=== PATIENT | female | born 1970 ===

== ENCOUNTER 2020-09-12 22:13 | Emergency (ER) | payer OTHER, SELFPAY ==
[2020-09-12 22:15] VITALS: BP 135/90; PULSE 65; RESP 18; TEMP 36.1; O2SAT 97; BMI 40.0
[2020-09-12 22:20] VITALS: BP 135/90; PULSE 69; RESP 18; TEMP 36.1; O2SAT 98
--- NOTE | 2020-09-12 22:41 | ED.GENADULT ---
HPI - General Adult General Chief complaint: General Medical Stated complaint: Multiple complaints Time Seen by Provider: 09/12/20 22:19 Source: patient Mode of arrival: ambulatory Limitations: no limitations History of Present Illness HPI narrative: 49-year-old female with a past medical history of diverticulitis here with left-sided abdominal pain for the last 3 days. No nausea, vomiting or diarrhea. She does have some dysuria. No fevers, chills. Onset (ago): day(s) Location: abdomen Radiation: non-radiation Severity: mild Quality: sharp Pain Consistency: constant Relieving factors: none Exacerbating factors: none Associated symptoms: denies other symptoms Treatments prior to arrival: none Related Data Previous Rx's Medication Instructions Recorded ibuprofen 600 mg PO Q8H PRN #20 tab 09/13/20 levofloxacin 750 mg PO DAILY 10 Days #10 tab 09/13/20 metronidazole [Flagyl] 500 mg PO TID 10 Days #30 tab 09/13/20 phenazopyridine [Pyridium] 200 mg PO TID PRN #10 tab 09/13/20 Allergies Allergy/AdvReac Type Severity Reaction Status Date / Time No Known Allergies Allergy Verified 09/09/20 07:13 Review of Systems Review of Systems: Yes all other systems are reviewed and are negative Constitutional: Constitutional: Reports no additional constitutional complaints, Denies body ache(s), Denies chills, Denies fever(s), Denies headache(s) and Denies weakness Eyes: Eyes: Reports no additional eye complaints and Denies change in vision ENT: Reports system reviewed and no additional complaints, except as documented, Denies dizziness, Denies headache(s), Denies nasal congestion, Denies nasal discharge and Denies neck pain Cardiovascular: Cardiovascular: Reports no additional cardiovascular complaints, Denies chest pain, Denies leg edema and Denies dyspnea Respiratory: Respiratory: Reports no additional respiratory complaints, Denies cough and Denies dyspnea Gastrointestinal: Gastrointestinal: Reports no additional gastrointestinal complaints, Reports abdominal pain, Denies diarrhea, Denies nausea and Denies vomiting Genitourinary: Genitourinary: Reports no additional female genitourinary complaints, Reports dysuria and Denies urinary incontinence Musculoskeletal: Musculoskeletal: Reports no additional musculoskeletal complaints, Denies back pain, Denies arthralgias, Denies joint swelling, Denies neck pain, Denies numbness and Denies tingling Integumentary/Breasts: Skin/Breast: Reports system reviewed and no additional complaints, except as docu and Denies rash Neurologic: Reports system reviewed and no additional complaints, except as documented, Denies Abnormal speech present, Denies dizziness, Denies headache(s), Denies numbness, Denies tingling and Denies weakness PMFSH Past Medical History Attestation statement: The following information was validated with the patient. Source: nursing notes reviewed Surgical History History of tubal ligation Family History Family History Father No problems noted. Mother No problems noted. Maternal Grandmother No problems noted. Maternal Grandfather No problems noted. Paternal Grandmother Diabetes Paternal Grandfather No problems noted. Social History Social History Alcohol intake: never Smoking Status: Never smoker Smoked in Last 30 Days: No Use of substances other than those prescribed or required for medical reasons: No Advance Directives: No Advance Directives Information Provided: Yes Physical Exam Vital Signs: Vital Signs: Last Vital Signs Temp 97 F 09/12/20 22:20 Pulse 56 09/12/20 23:38 Resp 16 09/12/20 23:38 BP 141/88 H 09/12/20 23:38 Pulse Ox 98 09/12/20 22:20 Body Mass Index 40.0 Const: General: cooperative, healthy appearing, comfortable and no acute distress Orientation/consciousness: patient oriented x3 Limitations: no limitations HENMT: Head: Yes normal to inspection Ears: hearing grossly normal bilaterally General nose exam: Normal external nose present Face and sinus: Yes normal facial exam Mouth: Normal oral and palatal mucosa present Throat: Yes posterior oropharynx normal Eyes: General: appearance normal, both eyes and all related structures Pupils: Equal, round and reactive pupils present Neck: Neck: Yes normal visual inspection Chest: Chest palpation & inspection: normal inspection of the chest Resp: Effort & Inspection: normal respiratory effort Auscultation: clear to auscultation bilaterally Cardio: Rate: regular rate Rhythm: regular rhythm Peripheral pulses: Peripheral pulses 2+ throughout GI: Inspection: Yes normal to inspection Palpation (GI): Soft to palpation, Tenderness to palpation present (GI) ( Left upper quadrant, left lower quadrant) and Guarding due to palpation present (GI) ( no rebound) Auscultation: normal bowel sounds Back/Spine/Pelvis: Thoracic/Lumbar Spine: thoracic and lumbar spine normal to inspection Skin: General skin exam: no rashes or lesions noted Neuro: General: patient oriented x3, no focal motor deficits and normal sensation to monofilament Cranial nerves: Yes Equal, round and reactive pupils present Cognition (Neuro): normal cognition Speech: No Abnormal speech present Gait exam (Neuro): Normal gait present Motor exam (neuro): 5/5 motor strength present throughout Extrem: General: Yes normal to inspection Course Course Course Narrative: 49-year-old female here with left-sided abdominal pain x3 days with some dysuria. Will need labs, UA, CT a/P. 0120- CT consistent with acute diverticulitis. Labs unremarkable. UA consistent with UTI. Patient tells me pain is improved. She is tolerating p.o.. Will discharge home with oral antibiotics. Reviewed worrisome signs and symptoms when to return to the emergency department. Comfortable discharge home. Medical Decision Making MDM Narrative Medical decision making narrative: diverticulitis, pancreatitis, renal colic, pyelonephritis, uti Medical Records Medical records reviewed: Yes I reviewed the patient's medical records. Lab Data Lab results reviewed: Yes I reviewed the patient's lab results. Result diagrams: 09/12/20 23:07 09/12/20 23:07 Labs: Lab Results 09/12/20 09/12/20 09/12/20 Range/Units 23:07 23:07 23:07 WBC 7.6 (4.8-10.8) X10*3/uL RBC 4.40 (4.20-5.50) X10*6/uL Hgb 12.7 (12.0-16.0) g/dl Hct 40.4 (37-47) % MCV 91.8 (80-98) fL MCH 28.9 (27.0-33.0) pg MCHC 31.4 (31.0-35.0) g/dl RDW 12.7 (11.0-16.0) % Plt Count 247 (160-400) X10*3/uL MPV 9.2 L (9.4-12.3) fL Immature Gran % (Auto) 0.1 (0.0-0.4) % Neut % (Auto) 54.6 (45-73) % Lymph % (Auto) 33.8 (20-40) % [place] % (Auto) 8.7 (2-11) % Eos % (Auto) 2.4 (0-4) % Baso % (Auto) 0.4 (0-2) % Lymph # (Auto) 2.6 (1.2-4.9) X10*3/uL [place] # (Auto) 0.7 (0.1-1.2) X10*3/uL Eos # (Auto) 0.2 (0.0-0.4) X10*3/uL Baso # (Auto) 0.0 (0.0-0.2) X10*3/uL Abs Immat Gran (auto) 0.01 (0.00-0.03) X10*3/uL Absolute Neuts (auto) 4.1 (2.0-8.3) X10*3/uL Absolute Nucleated RBC 0.000 (0.0-0.012) X10*3/uL Nucleated RBC % (auto) 0.0 (0.0-0.2) /100WBC Hold Blue Top Sodium 139 (135-145) mmol/L Potassium 3.9 (3.3-5.1) mmol/l Chloride 105 (96-108) mmol/L Carbon Dioxide 24 (22-29) mmol/L Anion Gap 14 (12-20) BUN 15 (9-16) mg/dL Creatinine 0.79 (0.5-1.4) mg/dL Estim Creat Clear Calc 111.9 Estimated GFR > 60 Random Glucose 98 (60-115) mg/dL Lactic Acid 0.6 (0.5-2.0) mmol/L Calcium 8.5 (8.4-10.2) mg/dL Magnesium 2.3 (1.6-2.6) mg/dL Total Bilirubin 0.5 (0.0-1.0) mg/dL Direct Bilirubin 0.2 (0.0-0.5) mg/dL AST 19 (5-31) U/L ALT 20 (0-31) U/L Alkaline Phosphatase 54 (39-117) U/L Total Protein 7.2 (6.5-8.0) g/dL Albumin 4.0 (3.5-5.0) g/dL Lipase (8-78) U/L Urine Color Urine Appearance Urine pH (5.0-8.0) Ur Specific [place] (1.005-1.025) Urine Protein (NEG-TRACE) MG/DL Urine Glucose (UA) (NEG) MG/DL Urine Ketones (NEG) MG/DL Urine Blood (NEG) Urine Nitrite (NEG) Ur Leukocyte Esterase (NEG) Urine RBC (0) /HPF Urine WBC (0-4) /HPF Ur Squamous Epith Cells /LPF Urine Bacteria /LPF Urine Mucus /LPF Urine Test (NEGATIVE) 09/12/20 09/12/20 09/12/20 Range/Units 23:07 23:07 23:36 WBC (4.8-10.8) X10*3/uL RBC (4.20-5.50) X10*6/uL Hgb (12.0-16.0) g/dl Hct (37-47) % MCV (80-98) fL MCH (27.0-33.0) pg MCHC (31.0-35.0) g/dl RDW (11.0-16.0) % Plt Count (160-400) X10*3/uL MPV (9.4-12.3) fL Immature Gran % (Auto) (0.0-0.4) % Neut % (Auto) (45-73) % Lymph % (Auto) (20-40) % [place] % (Auto) (2-11) % Eos % (Auto) (0-4) % Baso % (Auto) (0-2) % Lymph # (Auto) (1.2-4.9) X10*3/uL [place] # (Auto) (0.1-1.2) X10*3/uL Eos # (Auto) (0.0-0.4) X10*3/uL Baso # (Auto) (0.0-0.2) X10*3/uL Abs Immat Gran (auto) (0.00-0.03) X10*3/uL Absolute Neuts (auto) (2.0-8.3) X10*3/uL Absolute Nucleated RBC (0.0-0.012) X10*3/uL Nucleated RBC % (auto) (0.0-0.2) /100WBC Hold Blue Top SEE NOTE Sodium (135-145) mmol/L Potassium (3.3-5.1) mmol/l Chloride (96-108) mmol/L Carbon Dioxide (22-29) mmol/L Anion Gap (12-20) BUN (9-16) mg/dL Creatinine (0.5-1.4) mg/dL Estim Creat Clear Calc Estimated GFR Random Glucose (60-115) mg/dL Lactic Acid (0.5-2.0) mmol/L Calcium (8.4-10.2) mg/dL Magnesium (1.6-2.6) mg/dL Total Bilirubin (0.0-1.0) mg/dL Direct Bilirubin (0.0-0.5) mg/dL AST (5-31) U/L ALT (0-31) U/L Alkaline Phosphatase (39-117) U/L Total Protein (6.5-8.0) g/dL Albumin (3.5-5.0) g/dL Lipase 23 (8-78) U/L Urine Color YELLOW Urine Appearance HAZY Urine pH 6.0 (5.0-8.0) Ur Specific [place] >= 1.030 H (1.005-1.025) Urine Protein NEG (NEG-TRACE) MG/DL Urine Glucose (UA) NEG (NEG) MG/DL Urine Ketones NEG (NEG) MG/DL Urine Blood TRACE (NEG) Urine Nitrite POS H (NEG) Ur Leukocyte Esterase NEG (NEG) Urine RBC 0 (0) /HPF Urine WBC 15-29 H (0-4) /HPF Ur Squamous Epith Cells 3+ /LPF Urine Bacteria 2+ /LPF Urine Mucus 2+ /LPF Urine Test NEGATIVE (NEGATIVE) Imaging Data CT scan - abdomen: Attestation: I personally reviewed and interpreted this imaging study as follows: Radiologist's impression: CT ABDOMEN AND PELVIS WITH CONTRAST CLINICAL INFORMATION: Left lower quadrant abdominal pain. Rule out diverticulitis. COMPARISON: 01/10/2020 TECHNIQUE: Multidetector volumetric images were obtained from the superior aspect of the liver through the pubic symphysis following administration 85 mL of Omnipaque 350 intravenous contrast. Sagittal and coronal reformatted images were obtained on the technologist's workstation. Oral contrast: No This CT examination was performed using dose optimization techniques as appropriate, variously including the following: *Automated exposure control *Adjustment of mA and/or kV according to patient size (this includes techniques or standardized protocols for targeted exams where dose is matched to indication/reason for exam; i.e. extremities or head) *Use of iterative reconstruction technique DLP: 1009 mGy-cm FINDINGS: LUNG BASES: Minimal bibasilar atelectasis. The visualized cardiac structures are unremarkable. LIVER, GALLBLADDER, AND BILIARY TREE: The liver is normal in size, shape, and attenuation. No focal hepatic lesion or biliary ductal dilatation is present. The gallbladder is unremarkable with no evidence of radiopaque gallstones, gallbladder wall thickening, or obvious pericholecystic inflammatory changes. PANCREAS: Unremarkable. SPLEEN: Unremarkable. ADRENAL GLANDS: Unremarkable. KIDNEYS AND URETERS: The kidneys are normal in size, shape, and attenuation. No hydronephrosis, hydroureter, or calculi seen. No perinephric stranding. BLADDER: Unremarkable. GASTROINTESTINAL TRACT: The stomach is unremarkable. Normal caliber small bowel. No obstruction. There is colonic diverticulosis. Focal wall thickening and adjacent inflammation at the junction of the distal descending colon and proximal sigmoid colon. No free air. No fluid collection. ABDOMINAL WALL: No significant hernia is appreciated. LYMPH NODES: Normal. VASCULAR: Normal caliber aorta with mild atherosclerotic calcification. PELVIC VISCERA: Anteverted uterus. Dominant right ovarian follicle measuring 2.3 cm. OSSEOUS STRUCTURES: No acute or suspicious osseous abnormality. CT/CT abdomen pelvis w con IMPRESSION: Diverticulitis at the junction of the distal descending colon and proximal sigmoid colon. No free air or fluid collection. Discharge Plan Discharge Clinical Impression: Diverticulitis, UTI (urinary tract infection) Patient Disposition: Home, Self-Care Instructions: Diverticulitis (ED), Urinary Tract Infection in Women (ED) Additional Instructions: Start your antibiotics tomorrow morning Low residue diet drink plenty of fluids Prescriptions: New metronidazole [Flagyl] 500 mg tablet 500 mg PO TID 10 Days Qty: 30 RF: 0 levofloxacin 750 mg tablet 750 mg PO DAILY 10 Days Qty: 10 RF: 0 phenazopyridine [Pyridium] 200 mg tablet 200 mg PO TID PRN (Reason: pain) Qty: 10 RF: 0 ibuprofen 600 mg tablet 600 mg PO Q8H PRN (Reason: pain) Qty: 20 RF: 0 Referrals: Digna Tilley MD [Primary Care Provider] - 2 days Interventions: ED Discharge Assessment Last Done: 09/13/20 01:28 Discharge Date/Time: 09/13/20 01:28
[2020-09-12 23:15] LABS: Basophils Percent Auto 0.4 % (0-2); Eosinophils Absolute Auto 0.2 X10*3/uL (0.0-0.4); Eosinophils Percent Auto 2.4 % (0-4); Hematocrit 40.4 % (37-47); Hemoglobin 12.7 g/dl (12.0-16.0); Imm Gran Abs Auto 0.01 X10*3/uL (0.00-0.03); Imm Gran Pct Auto 0.1 % (0.0-0.4); Lymphocytes Absolute Auto 2.6 X10*3/uL (1.2-4.9); Lymphocytes Percent Auto 33.8 % (20-40); MANUAL DIFF FLAG NO; Mean Corpuscular HGB Conc 31.4 g/dl (31.0-35.0); Mean Corpuscular Hemoglobin 28.9 pg (27.0-33.0); Mean Corpuscular Volume 91.8 fL (80-98); Mean Platelet Volume 9.2 fL (9.4-12.3); Monocytes Absolute Auto 0.7 X10*3/uL (0.1-1.2); Monocytes Percent Auto 8.7 % (2-11); Neutrophils Absolute Auto 4.1 X10*3/uL (2.0-8.3); Neutrophils Percent Auto 54.6 % (45-73); Platelet Count 247 X10*3/uL (160-400); Red Cell Distribution Width 12.7 % (11.0-16.0); White Blood Count 7.6 X10*3/uL (4.8-10.8)
[2020-09-12] MEDS: Ketorolac Tromethamine 30 MG/ML VIAL IVPUSH (23:29)
[2020-09-12 23:38] VITALS: BP 141/88; PULSE 56; RESP 16
[2020-09-12 23:38] LABS: Lactic Acid 0.6 mmol/L (0.5-2.0)
[2020-09-12 23:42] LABS: Alanine Aminotransferase 20 U/L (0-31); Alkaline Phosphatase 54 U/L (39-117); Anion Gap 14 (12-20); Aspartate Amino Transferase 19 U/L (5-31); Bilirubin Direct 0.2 mg/dL (0.0-0.5); Bilirubin Total 0.5 mg/dL (0.0-1.0); Blood Urea Nitrogen 15 mg/dL (9-16); Calcium 8.5 mg/dL (8.4-10.2); Carbon Dioxide 24 mmol/L (22-29); Chloride 105 mmol/L (96-108); Creatinine Clr Calc Pharmacy 111.9; Estimated Glomerular Filt Rate > 60; Glucose Random 98 mg/dL (60-115); Lipase 23 U/L (8-78); Magnesium 2.3 mg/dL (1.6-2.6); Potassium 3.9 mmol/l (3.3-5.1); Sodium 139 mmol/L (135-145); Total Protein 7.2 g/dL (6.5-8.0)
[2020-09-12 23:44] LABS: Appearance Urine HAZY; Color Urine YELLOW; Glucose Urine UA NEG (NEG); Leukocyte Esterase Urine NEG (NEG); Nitrite Urine POS (NEG); Specific Gravity - Urine >= 1.030 (1.005-1.025); Urine Blood TRACE (NEG); Urine Ketones NEG (NEG); Urine Protein NEG (NEG-TRACE)
[2020-09-12 23:45] LABS: UPreg QC Valid YES; Urine Pregnancy NEGATIVE (NEGATIVE)
[2020-09-12 23:52] LABS: Bacteria Urine 2+ /LPF; Mucus Urine 2+ /LPF; RBC Urine 0 /HPF (0); Squamous Epithelial Cell Urine 3+ /LPF
--- NOTE | 2020-09-13 | CT_ITS ---
EXAMINATION: CT ABDOMEN AND PELVIS WITH CONTRAST CLINICAL INFORMATION: Left lower quadrant abdominal pain. Rule out diverticulitis. COMPARISON: 01/10/2020 TECHNIQUE: Multidetector volumetric images were obtained from the superior aspect of the liver through the pubic symphysis following administration 85 mL of Omnipaque 350 intravenous contrast. Sagittal and coronal reformatted images were obtained on the technologist's workstation. Oral contrast: No This CT examination was performed using dose optimization techniques as appropriate, variously including the following: *Automated exposure control *Adjustment of mA and/or kV according to patient size (this includes techniques or standardized protocols for targeted exams where dose is matched to indication/reason for exam; i.e. extremities or head) *Use of iterative reconstruction technique DLP: 1009 mGy-cm FINDINGS: LUNG BASES: Minimal bibasilar atelectasis. The visualized cardiac structures are unremarkable. LIVER, GALLBLADDER, AND BILIARY TREE: The liver is normal in size, shape, and attenuation. No focal hepatic lesion or biliary ductal dilatation is present. The gallbladder is unremarkable with no evidence of radiopaque gallstones, gallbladder wall thickening, or obvious pericholecystic inflammatory changes. PANCREAS: Unremarkable. SPLEEN: Unremarkable. ADRENAL GLANDS: Unremarkable. KIDNEYS AND URETERS: The kidneys are normal in size, shape, and attenuation. No hydronephrosis, hydroureter, or calculi seen. No perinephric stranding. BLADDER: Unremarkable. GASTROINTESTINAL TRACT: The stomach is unremarkable. Normal caliber small bowel. No obstruction. There is colonic diverticulosis. Focal wall thickening and adjacent inflammation at the junction of the distal descending colon and proximal sigmoid colon. No free air. No fluid collection. ABDOMINAL WALL: No significant hernia is appreciated. LYMPH NODES: Normal. VASCULAR: Normal caliber aorta with mild atherosclerotic calcification. PELVIC VISCERA: Anteverted uterus. Dominant right ovarian follicle measuring 2.3 cm. OSSEOUS STRUCTURES: No acute or suspicious osseous abnormality. CT/CT abdomen pelvis w con IMPRESSION: Diverticulitis at the junction of the distal descending colon and proximal sigmoid colon. No free air or fluid collection.
[2020-09-13] MEDS: iohexoL 350 MG/ML 100 ML INFUS..BTL 85 ML IV (00:25)
--- NOTE | 2020-09-13 00:28 | PC.NURSE ---
PT A&O, DENIES ANY N/V. NO CHEST PAIN. REPORTS LLQ PAIN STARTING 3 DAYS AGO. PT HAD BOWEL MOVEMENT TODAY AND STATE SHE WAS CONSTIPATED. MEDICATED PER DEC. LABS AND UA COLLECTED AND SENT. PT TAKEN TO CT-SCAN.
[2020-09-13] MEDS: levoFLOXacin 750 MG TABLET PO (01:23)
[2020-09-13] MEDS: metroNIDAZOLE 500 MG TABLET PO (01:23)
== END 2020-09-13 01:28 | disposition home or self-care (01) ==
PROVIDERS: Nurse Practitioner Family; Emergency Provider Emergency Medicine; PCP Internal Medicine
DX: K57.32 Diverticulitis of large intestine without perforation or abscess without bleeding (principal); N39.0 Urinary tract infection, site not specified; R10.32 Left lower quadrant pain; Z79.899 Other long term (current) drug therapy
CPT/HCPCS: 36415; 74177; 80048; 80076; 81001; 81025; 83605; 83690; 83735; 85025; 87040; 87086; 87088; 87186; 96374; 99284; J1885; Q9967

== ENCOUNTER 2020-12-08 20:28 | Emergency (ER) | payer OTHER, SELFPAY ==
--- NOTE | ~2020-12-08 | CT_ITS ---
EXAMINATION: CT ABDOMEN AND PELVIS WITH CONTRAST CLINICAL INFORMATION: Left lower quadrant pain. History of diverticulitis. COMPARISON: 09/13/2020 TECHNIQUE: Multidetector volumetric images were obtained from the superior aspect of the liver through the pubic symphysis following administration 85 mL of Omnipaque 350 intravenous contrast. Sagittal and coronal reformatted images were obtained on the technologist's workstation. Oral contrast: No This CT examination was performed using dose optimization techniques as appropriate, variously including the following: *Automated exposure control *Adjustment of mA and/or kV according to patient size (this includes techniques or standardized protocols for targeted exams where dose is matched to indication/reason for exam; i.e. extremities or head) *Use of iterative reconstruction technique DLP: 961 mGy-cm FINDINGS: LUNG BASES: The visualized lung bases are unremarkable. LIVER, GALLBLADDER, AND BILIARY TREE: The liver is normal in size, shape, and attenuation. No focal hepatic lesion or biliary ductal dilatation is present. The gallbladder is contracted with no evidence of radiopaque gallstones, gallbladder wall thickening, or obvious pericholecystic inflammatory changes. PANCREAS: Unremarkable. SPLEEN: Unremarkable. ADRENAL GLANDS: Unremarkable. KIDNEYS AND URETERS: The kidneys are normal in size, shape, and attenuation. No hydronephrosis, hydroureter, or calculi seen. No perinephric stranding. BLADDER: Unremarkable. GASTROINTESTINAL TRACT: The stomach is unremarkable. Normal caliber small bowel. No obstruction. Normal appendix. There is colonic diverticulosis present. Wall thickening of the distal descending colon with adjacent inflammation. No free air. No fluid collection. ABDOMINAL WALL: No significant hernia is appreciated. LYMPH NODES: Normal. VASCULAR: Unremarkable. PELVIC VISCERA: Anteverted uterus. Nabothian cysts noted at the cervix. Prominent follicles are seen at both ovaries. Particularly prominent at the left ovary is a 3.1 cm follicle. OSSEOUS STRUCTURES: No acute or suspicious osseous abnormality. Mild degenerative changes of the hips. CT/CT abdomen pelvis w con IMPRESSION: Diverticulitis of the distal descending colon.
[2020-12-08 21:40] VITALS: BP 134/80; PULSE 60; RESP 18; TEMP 37.1; O2SAT 96; BMI 39.0
[2020-12-08 22:03] VITALS: BP 145/92; PULSE 84; RESP 16; TEMP 37.4; O2SAT 99
[2020-12-08 22:09] LABS: Basophils Percent Auto 0.5 % (0-2); Eosinophils Absolute Auto 0.1 X10*3/uL (0.0-0.4); Eosinophils Percent Auto 1.4 % (0-4); Hematocrit 39.7 % (37-47); Hemoglobin 12.9 g/dl (12.0-16.0); Imm Gran Abs Auto 0.03 X10*3/uL (0.00-0.03); Imm Gran Pct Auto 0.3 % (0.0-0.4); Lymphocytes Percent Auto 23.8 % (20-40); MANUAL DIFF FLAG NO; Mean Corpuscular HGB Conc 32.5 g/dl (31.0-35.0); Mean Corpuscular Hemoglobin 29.9 pg (27.0-33.0); Mean Corpuscular Volume 92.1 fL (80-98); Monocytes Absolute Auto 0.8 X10*3/uL (0.1-1.2); Monocytes Percent Auto 9.7 % (2-11); Neutrophils Absolute Auto 5.5 X10*3/uL (2.0-8.3); Neutrophils Percent Auto 64.3 % (45-73); Platelet Count 282 X10*3/uL (160-400); Red Blood Count 4.31 X10*6/uL (4.20-5.50); Red Cell Distribution Width 12.8 % (11.0-16.0); White Blood Count 8.6 X10*3/uL (4.8-10.8)
[2020-12-08 22:14] LABS: Glucose Urine UA NEG (NEG); Leukocyte Esterase Urine NEG (NEG); Nitrite Urine NEG (NEG); Specific Gravity - Urine 1.025 (1.005-1.025); Urine Blood NEG (NEG); Urine Ketones NEG (NEG); Urine Protein NEG (NEG-TRACE)
[2020-12-08 22:15] LABS: Appearance Urine CLEAR; Color Urine DARK YELLOW
[2020-12-08 22:40] LABS: Alanine Aminotransferase 14 U/L (0-31); Alkaline Phosphatase 55 U/L (39-117); Anion Gap 13 (12-20); Aspartate Amino Transferase 15 U/L (5-31); Bilirubin Total 0.4 mg/dL (0.0-1.0); Blood Urea Nitrogen 15 mg/dL (9-16); Carbon Dioxide 27 mmol/L (22-29); Chloride 106 mmol/L (96-108); Creatinine Clr Calc Pharmacy 101.5; Estimated Glomerular Filt Rate > 60; Glucose Random 77 mg/dL (60-115); Potassium 4.8 mmol/L (3.3-5.1); Sodium 141 mmol/L (135-145); Total Protein 7.2 g/dL (6.5-8.0)
--- NOTE | 2020-12-09 00:10 | ED.ABDPAIN ---
HPI - Abdominal Pain General Chief Complaint: Abdominal Pain Stated Complaint: pelvic abdominal pain Time Seen by Provider: 12/09/20 00:00 Source: patient Mode of arrival: ambulatory Limitations: no limitations History of Present Illness HPI narrative: Patient comes emergency room complaining of suprapubic and left lower quadrant pain. Started today around 19:30. Has been constant, deep pressure sensation, nonradiating. Patient denies vomiting or diarrhea, no fever. Patient has history of diverticulitis and kidney stones. MD elicited complaint: abdominal pain Related Data Previous Rx's Medication Instructions Recorded ibuprofen 600 mg PO Q8H PRN #20 tab 09/13/20 levofloxacin 750 mg PO DAILY 10 Days #10 tab 09/13/20 metronidazole [Flagyl] 500 mg PO TID 10 Days #30 tab 09/13/20 phenazopyridine [Pyridium] 200 mg PO TID PRN #10 tab 09/13/20 Allergies Allergy/AdvReac Type Severity Reaction Status Date / Time No Known Allergies Allergy Verified 12/08/20 21:40 Review of Systems Review of Systems Constitutional : No Weight loss, No Fever, No Chills, No Night Sweats, No Fatigue, No Malaise ENT/Mouth : No Hearing loss, No Ear Pain, No Nasal Congestion, No Sinus Pain, No Hoarseness, No sore throat, No Rhinorrhea, No Swallowing Difficulty Eyes: No Eye Pain, No Swelling, No Redness, No Foreign Body, No Discharge, No Vision Changes Cardiovascular : No Chest Pain, No SOB, No Dyspnea on Exertion, No Orthopnea, No Edema, No Palpitations Respiratory : No Cough, No Sputum, No Wheezing, No Smoke Exposure, No Dyspnea Gastrointestinal : No Nausea, No Vomiting, No Diarrhea, No Constipation, complaining of suprapubic and left lower quadrant pain, No Hematochezia, No Melena Genitourinary : no irregular bleeding, No Dysuria, No Urinary Frequency, No Hematuria, No Urinary Incontinence, No Urgency, No Flank Pain, No Urinary Flow Changes, No Hesitancy Musculoskeletal : No joint pain, No Myalgias, No Joint Swelling Skin : No Skin Lesions, No rash Neuro : No Weakness, No Numbness, No Paresthesias, No Loss of Consciousness, No Dizziness, No Headache Psych : No Anxiety/Panic, No Depression, No SI/HI/AH/VH, No Social Issues, Heme/Lymph: No Bruising, No Bleeding,No Lymphadenopathy Endocrine : No Polyuria, No Polydipsia, No Temperature Intolerance Physical Exam Vital Signs: Vital Signs: Last Vital Signs Temp 99.3 F 12/08/20 22:03 Pulse 84 12/08/20 22:03 Resp 16 12/08/20 22:03 BP 145/92 H 12/08/20 22:03 Pulse Ox 99 12/08/20 22:03 Body Mass Index 39.0 Appearance: Alert. Oriented X3. No acute distress. Eyes: Pupils equal, round and reactive to light. ENT: Pharynx normal. Neck: Normal inspection. Neck supple. No lymph nodes noted. No crepitus CVS: Normal heart rate and rhythm. Pulses normal. Normal S1 and S2 Respiratory: No respiratory distress. Breath sounds normal. No Wheezing. No rales Abdomen: Soft, tenderness to palpation over the left lower quadrant, No rigidity. No distention. good BS x4 Skin: Skin warm and dry. Normal skin color. Normal skin turgor. Extremities: No lower extremity edema. No lower extremity edema. No Lacerations. No Rash Neuro: Oriented X 3. No motor deficit. No sensory deficit. Moving all extermities. No slurred speech. Course Course Course Narrative: I discussed the labs and imaging with the patient, patient has diverticulitis. Patient states the pain is very minimal. Patient will be taking p.o. antibiotics and then will be discharged home. Discussed with the patient that if the pain increases, any new symptoms she needs to return to the emergency room MDM - Abdominal Pain Lab Data Result diagrams: 12/08/20 22:02 12/08/20 22:02 Labs: Lab Results 12/08/20 12/08/20 12/08/20 Range/Units 21:57 21:57 22:02 WBC 8.6 (4.8-10.8) X10*3/uL RBC 4.31 (4.20-5.50) X10*6/uL Hgb 12.9 (12.0-16.0) g/dl Hct 39.7 (37-47) % MCV 92.1 (80-98) fL MCH 29.9 (27.0-33.0) pg MCHC 32.5 (31.0-35.0) g/dl RDW 12.8 (11.0-16.0) % Plt Count 282 (160-400) X10*3/uL MPV 9.0 L (9.4-12.3) fL Immature Gran % (Auto) 0.3 (0.0-0.4) % Neut % (Auto) 64.3 (45-73) % Lymph % (Auto) 23.8 (20-40) % [place] % (Auto) 9.7 (2-11) % Eos % (Auto) 1.4 (0-4) % Baso % (Auto) 0.5 (0-2) % Lymph # (Auto) 2.0 (1.2-4.9) X10*3/uL [place] # (Auto) 0.8 (0.1-1.2) X10*3/uL Eos # (Auto) 0.1 (0.0-0.4) X10*3/uL Baso # (Auto) 0.0 (0.0-0.2) X10*3/uL Abs Immat Gran (auto) 0.03 (0.00-0.03) X10*3/uL Absolute Neuts (auto) 5.5 (2.0-8.3) X10*3/uL Absolute Nucleated RBC 0.000 (0.0-0.012) X10*3/uL Nucleated RBC % (auto) 0.0 (0.0-0.2) /100WBC Hold Blue Top Sodium (135-145) mmol/L Potassium (3.3-5.1) mmol/L Chloride (96-108) mmol/L Carbon Dioxide (22-29) mmol/L Anion Gap (12-20) BUN (9-16) mg/dL Creatinine (0.5-1.4) mg/dL Estim Creat Clear Calc Estimated GFR Random Glucose (60-115) mg/dL Calcium (8.4-10.2) mg/dL Total Bilirubin (0.0-1.0) mg/dL AST (5-31) U/L ALT (0-31) U/L Alkaline Phosphatase (39-117) U/L Total Protein (6.5-8.0) g/dL Albumin (3.5-5.0) g/dL Urine Color DARK YELLOW Urine Appearance CLEAR Urine pH 6.0 (5.0-8.0) Ur Specific [place] 1.025 (1.005-1.025) Urine Protein NEG (NEG-TRACE) MG/DL Urine Glucose (UA) NEG (NEG) MG/DL Urine Ketones NEG (NEG) MG/DL Urine Blood NEG (NEG) Urine Nitrite NEG (NEG) Ur Leukocyte Esterase NEG (NEG) Urine Test NEGATIVE (NEGATIVE) 12/08/20 12/08/20 Range/Units 22:02 22:02 WBC (4.8-10.8) X10*3/uL RBC (4.20-5.50) X10*6/uL Hgb (12.0-16.0) g/dl Hct (37-47) % MCV (80-98) fL MCH (27.0-33.0) pg MCHC (31.0-35.0) g/dl RDW (11.0-16.0) % Plt Count (160-400) X10*3/uL MPV (9.4-12.3) fL Immature Gran % (Auto) (0.0-0.4) % Neut % (Auto) (45-73) % Lymph % (Auto) (20-40) % [place] % (Auto) (2-11) % Eos % (Auto) (0-4) % Baso % (Auto) (0-2) % Lymph # (Auto) (1.2-4.9) X10*3/uL [place] # (Auto) (0.1-1.2) X10*3/uL Eos # (Auto) (0.0-0.4) X10*3/uL Baso # (Auto) (0.0-0.2) X10*3/uL Abs Immat Gran (auto) (0.00-0.03) X10*3/uL Absolute Neuts (auto) (2.0-8.3) X10*3/uL Absolute Nucleated RBC (0.0-0.012) X10*3/uL Nucleated RBC % (auto) (0.0-0.2) /100WBC Hold Blue Top SEE NOTE Sodium 141 (135-145) mmol/L Potassium 4.8 (3.3-5.1) mmol/L Chloride 106 (96-108) mmol/L Carbon Dioxide 27 (22-29) mmol/L Anion Gap 13 (12-20) BUN 15 (9-16) mg/dL Creatinine 0.85 (0.5-1.4) mg/dL Estim Creat Clear Calc 101.5 Estimated GFR > 60 Random Glucose 77 (60-115) mg/dL Calcium 9.0 (8.4-10.2) mg/dL Total Bilirubin 0.4 (0.0-1.0) mg/dL AST 15 (5-31) U/L ALT 14 (0-31) U/L Alkaline Phosphatase 55 (39-117) U/L Total Protein 7.2 (6.5-8.0) g/dL Albumin 4.0 (3.5-5.0) g/dL Urine Color Urine Appearance Urine pH (5.0-8.0) Ur Specific [place] (1.005-1.025) Urine Protein (NEG-TRACE) MG/DL Urine Glucose (UA) (NEG) MG/DL Urine Ketones (NEG) MG/DL Urine Blood (NEG) Urine Nitrite (NEG) Ur Leukocyte Esterase (NEG) Urine Test (NEGATIVE) Imaging Data CT scan - abdomen: Radiologist's impression: FINDINGS: LUNG BASES: The visualized lung bases are unremarkable. LIVER, GALLBLADDER, AND BILIARY TREE: The liver is normal in size, shape, and attenuation. No focal hepatic lesion or biliary ductal dilatation is present. The gallbladder is contracted with no evidence of radiopaque gallstones, gallbladder wall thickening, or obvious pericholecystic inflammatory changes. PANCREAS: Unremarkable. SPLEEN: Unremarkable. ADRENAL GLANDS: Unremarkable. KIDNEYS AND URETERS: The kidneys are normal in size, shape, and attenuation. No hydronephrosis, hydroureter, or calculi seen. No perinephric stranding. BLADDER: Unremarkable. GASTROINTESTINAL TRACT: The stomach is unremarkable. Normal caliber small bowel. No obstruction. Normal appendix. There is colonic diverticulosis present. Wall thickening of the distal descending colon with adjacent inflammation. No free air. No fluid collection. ABDOMINAL WALL: No significant hernia is appreciated. LYMPH NODES: Normal. VASCULAR: Unremarkable. PELVIC VISCERA: Anteverted uterus. Nabothian cysts noted at the cervix. Prominent follicles are seen at both ovaries. Particularly prominent at the left ovary is a 3.1 cm follicle. OSSEOUS STRUCTURES: No acute or suspicious osseous abnormality. Mild degenerative changes of the hips. CT/CT abdomen pelvis w con IMPRESSION: Diverticulitis of the distal descending colon. Discharge Plan Discharge Clinical Impression: Diverticulitis Patient Disposition: Home, Self-Care Instructions: Diverticulitis Diet (ED), Diverticulitis (ED) Additional Instructions: If you have worsening abdominal pain, any new symptoms, please return to the emergency room. Please follow-up with your primary care physician tomorrow. If you have any worsening or new symptoms, please return to the emergency room or call 911 Prescriptions: No Action metronidazole [Flagyl] 500 mg tablet 500 mg PO TID 10 Days Qty: 30 RF: 0 levofloxacin 750 mg tablet 750 mg PO DAILY 10 Days Qty: 10 RF: 0 phenazopyridine [Pyridium] 200 mg tablet 200 mg PO TID PRN (Reason: pain) Qty: 10 RF: 0 ibuprofen 600 mg tablet 600 mg PO Q8H PRN (Reason: pain) Qty: 20 RF: 0 PMFSH Past Medical History Medical History (Updated 12/09/20 @ 01:26 by Abeba Caal MD) Diverticula, colon Diverticulitis Surgical History History of tubal ligation Family History Family History Father No problems noted. Mother No problems noted. Maternal Grandmother No problems noted. Maternal Grandfather No problems noted. Paternal Grandmother Diabetes Paternal Grandfather No problems noted. Social History Social History Alcohol intake: never Smoking Status: Never smoker Advance Directives: No
[2020-12-09 00:25] LABS: UPreg QC Valid YES; Urine Pregnancy NEGATIVE (NEGATIVE)
[2020-12-09] MEDS: iohexoL 350 MG/ML 100 ML INFUS..BTL 85 ML IV (00:39)
[2020-12-09] MEDS: metroNIDAZOLE 500 MG TABLET PO (01:33)
[2020-12-09] MEDS: levoFLOXacin 500 MG TABLET PO (01:33)
== END 2020-12-09 02:18 | disposition home or self-care (01) ==
PROVIDERS: Emergency Provider Emergency Medicine; PCP Internal Medicine
DX: K57.32 Diverticulitis of large intestine without perforation or abscess without bleeding (principal); Z87.442 Personal history of urinary calculi; Z79.899 Other long term (current) drug therapy
CPT/HCPCS: 36415; 74177; 80053; 81003; 81025; 85025; 99283; 99284; Q9967

== ENCOUNTER → 2021-01-16 10:38 | Outpatient (BNVA) | payer OTHER, SELFPAY | PROVIDERS: PCP Internal Medicine; Visit Provider Surgery ==

== ENCOUNTER 2021-10-19 09:35 | Emergency (ER) | payer OTHER, SELFPAY ==
--- NOTE | ~2021-10-19 | XR_ITS ---
EXAMINATION: XR HIP, LEFT CLINICAL INFORMATION: Left hip pain COMPARISON: None TECHNIQUE: Two views of the left hip. AP pelvis one view FINDINGS: Bones and soft tissues are normal. No fracture. Alignment is anatomic. Hip joint space is maintained. There are phleboliths seen throughout the pelvis. 2 views of the left hip reveal no fracture or dislocation. XR/XR hip LT w PEL1V IMPRESSION: Normal left hip. Normal AP pelvis
--- NOTE | ~2021-10-19 | US_ITS ---
EXAMINATION: US VENOUS ULTRASOUND WITH DOPPLER LOWER EXTREMITY, LEFT CLINICAL INFORMATION: Thigh pain. COMPARISON: None TECHNIQUE: Ultrasound of the deep veins is performed from the hip to the calf with compression sonography and color and pulse Doppler assessment. Spectral analysis with color-flow imaging is performed. FINDINGS: There is normal venous compression and respiratory variation and augmented flow. The visualized common femoral vein, superficial femoral vein, profunda femoral vein, popliteal vein, and the trifurcation region shows no evidence of deep venous thrombosis. There is no significant popliteal fossa cyst. If the patient's symptoms persist, followup ultrasound in 5 days 7 days might be of value to exclude proximal propagation from a non-visualized calf vein. US/US venous duplex LE LT IMPRESSION: No DVT demonstrated in the left lower extremity.
[2021-10-19 10:01] VITALS: BP 148/91; PULSE 74; RESP 16; TEMP 36.9; O2SAT 99; BMI 38.7
--- NOTE | 2021-10-19 10:42 | ED_ITS ---
HPI - Extremity Injury (Lower) General Chief Complaint: Extremity Injury, Lower Stated Complaint: left leg pain Time Seen by Provider: 10/19/21 10:42 Source: patient Mode of arrival: ambulatory Limitations: no limitations History of Present Illness HPI Narrative: This is a 51-year-old female no known medical history presenting to the emergency department with atraumatic left thigh pain set at time radiates to the knee. Patient tells me that this has been going on for 2 days progressively worsening. She tells me that the pain is deep, into her thigh. Worse with palpation, better at rest. She tells me she notes slight swelling to the left thigh. This has never happened to her before. She has no history of DVTs. She denies shortness of breath and chest pain. Patient has been taking Motrin for pain with no relief. MD complaint: thigh injury (atraumatic left thigh pain ) Onset (ago): day(s) (2) Type of Injury: other (none) Severity: severe Severity scale (1-10): 10 Relieving factors: nothing Exacerbating factors: nothing Associated symptoms: other (pain ) Other symptoms: none Related Data Previous Rx's Medication Instructions Recorded ibuprofen 600 mg tablet 600 mg PO Q8H PRN #20 tab 09/13/20 cyclobenzaprine 10 mg tablet 10 mg PO BEDTIME PRN #7 tab 10/19/21 oxycodone 5 mg tablet 5 mg PO Q8H PRN #8 tab 10/19/21 Allergies Allergy/AdvReac Type Severity Reaction Status Date / Time No Known Allergies Allergy Verified 01/01/21 14:26 Review of Systems Review of Systems: Constitutional : No Weight loss, No Fever, No Chills, No Fatigue, No Malaise ENT/Mouth : No sore throat, No Rhinorrhea Eyes: No Eye Pain, No Swelling, No Redness Cardiovascular : No Chest Pain, No SOB, No Dyspnea on Exertion, No Orthopnea, No Edema, No Palpitations Respiratory : No Cough, No Sputum, No Wheezing Gastrointestinal : No Nausea, No Vomiting, No Diarrhea, No Constipation, No abdominal Pain, No Hematochezia, No Melena Genitourinary : No Dysuria, No Urinary Frequency, No Hematuria, Musculoskeletal : + joint pain, No Myalgias, + Joint Swelling Skin : No Skin Lesions, No rash Neuro : No Weakness, No Numbness, No Dizziness, No Headache All other systems reviewed and are negative Yes all other systems are reviewed and are negative [facility] Past Medical History Attestation statement: The following information was validated with the patient. Source: old records reviewed and nursing notes reviewed Medical History Diverticula, colon Diverticulitis Surgical History History of tubal ligation Family History Family History Father No problems noted. Mother No problems noted. Maternal Grandmother No problems noted. Maternal Grandfather No problems noted. Paternal Grandmother Diabetes Paternal Grandfather No problems noted. Social History Social History Alcohol intake: never Advance Directives: No Advance Directives Information Provided: No Patient : No Physical Exam Vital Signs: Vital Signs: Last Vital Signs Temp 98.3 F 10/19/21 12:56 Pulse 77 10/19/21 12:56 Resp 17 10/19/21 12:56 BP 155/91 H 10/19/21 12:56 Pulse Ox 97 10/19/21 12:56 BMI result Body Mass Index 38.7 Patient's vital signs are stable, she is noted to be slightly hypertensive. Appearance: Alert.? Oriented X3.? No acute distress.? Head: Normocephalic, atraumatic, no step-offs or deformities Eyes: Pupils equal, round and reactive to light.? ENT: Pharynx normal.? Neck: Normal inspection.? Neck supple.? CVS: Normal heart rate and rhythm.? Pulses normal.? Respiratory: No respiratory distress.? Breath sounds normal.? Abdomen: Soft and nontender.? Skin: Skin warm and dry.? Normal skin color.? Normal skin turgor.? Extremities: No lower extremity edema.? No calf ttp. 5/5 strength to bilateral upper and lower extremities + pain with palpation over left femoral head area. Normal on right. No overlying skin changes. Sensation and morot intact to b/l upper and lower extremities. No foot drop. Back: No midline tenderness, no C-spine tenderness, full range of motion, no CVA tenderness bilaterally Neuro: Oriented X 3.? No motor deficit.? No sensory deficit. Course Reevaluation(s) Reevaluation #1: Patient reports that her 's COVID positive, COVID test has been ordered at this time. X-ray negative. COVID negative. At this time I suspect this is a hip strain. I will send her home with naproxen and cyclobenzaprine. Will also give oxycodone for severe pain Time: 12:58 [facility] - Extremity Injury (Lower) [facility] Narrative Medical decision making narrative: 1122 51 yo f no pmhx presents with atraumatic left hip pain X2 days worsening Upon exam no lower extremity edema.? No calf ttp. 5/5 strength to bilateral upper and lower extremities + pain with palpation over left femoral head area. Normal on right. No overlying skin changes. Sensation and morot intact to b/l upper and lower extremities. Lungs clear. RRR. Abdomen soft non tender no distended. Plan US of LLE r/o DVT, although low suspicion. Will rule out fx and dislocation w/ xray. Likely arthritis Medical Records Attestation: I reviewed the patient's medical records. Lab Data Attestation: I reviewed the patient's lab results. Labs: Lab Results 10/19/21 Range/Units 12:32 COVID-19 ([facility]) Negative (Negative) COVID-19 Clin Com See Note Imaging Data Pelvis Xray : Attestation: I personally reviewed and interpreted this imaging study as follows: Radiologist's impression: FINDINGS: Bones and soft tissues are normal. No fracture. Alignment is anatomic. Hip joint space is maintained. There are phleboliths seen throughout the pelvis. 2 views of the left hip reveal no fracture or dislocation. XR/XR hip LT w PEL1V IMPRESSION: Normal left hip. ? Normal AP pelvis Venous US: Attestation: I personally reviewed and interpreted this imaging study as follows: Radiologist's impression: US/US venous duplex LE LT IMPRESSION: No DVT demonstrated in the left lower extremity. Critical Care Time Critical Care Time Critical Care Time: No Discharge Plan Discharge Clinical Impression: Hip strain Patient Disposition: Home, Self-Care Instructions: Swollen Hip Joint (ED) Additional Instructions: Take your medications as prescribed. If you were prescribed antibiotics today, it is important that you take your medication to their entirety, do not skip any doses, do not finish them early. Follow-up with your primary care provider this week. Take ibuprofen every 6 hours, Tylenol every 4 as needed for pain. Only take oxycodone for severe pain, do not take this with ibuprofen or Tylenol. Return to the emergency department with new or worsening symptoms. In case of emergency call 911 Prescriptions: New cyclobenzaprine 10 mg tablet 10 mg PO BEDTIME PRN (Reason: muscle spasm) Qty: 7 RF: 0 oxycodone 5 mg tablet 5 mg PO Q8H PRN (Reason: pain) Qty: 8 RF: 0 No Action ibuprofen 600 mg tablet 600 mg PO Q8H PRN (Reason: pain) Qty: 20 RF: 0 Referrals: Digna Tilley MD [Primary Care Provider] - 2 days
[2021-10-19 12:52] LABS: COVID-19 Test Negative (Negative)
[2021-10-19 12:56] VITALS: BP 155/91; PULSE 77; RESP 17; TEMP 36.8; O2SAT 97
[2021-10-19] MEDS: oxyCODONE HCl Immed Release 5 MG TABLET PO (13:09)
[2021-10-19 13:21] VITALS: RESP 18
== END 2021-10-19 13:22 | disposition home or self-care (01) ==
PROVIDERS: Physician Assistant; Emergency Provider Emergency Medicine; PCP Internal Medicine
DX: S76.012A Strain of muscle, fascia and tendon of left hip, initial encounter (principal); X58.XXXA Exposure to other specified factors, initial encounter; M79.605 Pain in left leg; M25.452 Effusion, left hip; Z20.822 Contact with and (suspected) exposure to COVID-19; Y93.9 Activity, unspecified; Y92.9 Unspecified place or not applicable; Y99.9 Unspecified external cause status
CPT/HCPCS: 36415; 73502; 87635; 93971; 99284

== ENCOUNTER 2022-07-18 16:57 | Emergency (ER) | payer OTHER, SELFPAY ==
[2022-07-18 17:02] VITALS: BMI 39.5
--- NOTE | 2022-07-18 17:03 | ECG_ITS ---
Test Reason : CHEST PAIN Blood Pressure : / mmHG Vent. Rate : 173 BPM Atrial Rate : 000 BPM P-R Int : 000 ms QRS Dur : 084 ms QT Int : 274 ms P-R-T Axes : 000 055 058 degrees QTc Int : 464 ms Supraventricular tachycardia Anterior infarct , age undetermined Abnormal ECG When compared with ECG of 22-AUG-2019 19:47, Vent. rate has increased BY 74 BPM Anterior infarct is now Present Referred By: Generic ED Physician Electronically Signed By:ALVA MACIAS
--- NOTE | 2022-07-18 17:27 | ED_ITS ---
HPI - Arrhythmia/Palpitations General Chief Complaint: Arrhythmia/Palpitations Stated Complaint: chest pain Time Seen by Provider: 07/18/22 17:20 Source: patient Mode of arrival: ambulatory Limitations: no limitations History of Present Illness HPI narrative: Patient is 51 years old with history of SVT in the past noticed palpitations for last 2 hours which chest discomfort slight dizzy and headache no shortness of breath chills patient not taking any medications for this. On arrival patient's heart rate was 173 Related Data Previous Rx's Medication Instructions Recorded ibuprofen 600 mg tablet 600 mg PO Q8H PRN pain #20 tabs 09/13/20 cyclobenzaprine 10 mg tablet 10 mg PO BEDTIME PRN muscle spasm 10/19/21 #7 tabs oxycodone 5 mg tablet 5 mg PO Q8H PRN pain #8 tabs 10/19/21 Allergies Allergy/AdvReac Type Severity Reaction Status Date / Time No Known Allergies Allergy Verified 01/01/21 14:26 Review of Systems Review of Systems: Yes all other systems are reviewed and are negative PMFSH Past Medical History Medical History Diverticula, colon Diverticulitis Surgical History History of tubal ligation Family History Family History Father No problems noted. Mother No problems noted. Maternal Grandmother No problems noted. Maternal Grandfather No problems noted. Paternal Grandmother Diabetes Paternal Grandfather No problems noted. Social History Social History Alcohol intake: never Patient Tobacco Use Status: Never used Tobacco Use of substances other than those prescribed or required for medical reasons: No Advance Directives: No Advance Directives Information Provided: Yes Patient : No Physical Exam Vital Signs: Vital Signs: Last Vital Signs Temp 98 F 07/18/22 17:39 Pulse 86 07/18/22 21:24 Resp 22 H 07/18/22 21:24 BP 127/84 07/18/22 21:24 Pulse Ox 97 07/18/22 21:24 O2 Del Method 07/18/22 21:24 BMI result Body Mass Index 39.5 Appearance: Alert. Oriented X3. No acute distress. Eyes: PERRLA, No Nystagmus ENT: Pharynx normal. Oral Mucosa moist Neck: Normal inspection. Neck supple. CVS: Irregularly irregular tachycardic no murmur Pulses normal. Respiratory: No respiratory distress. Equal air entry bilateral, no wheezing/rales/rhonchi Abdomen: Soft and nontender. Bowel sounds are present, no mass palpable, no CVA tenderness Skin: Skin warm and dry. Normal skin color. Normal skin turgor. Extremities: No lower extremity edema. No calf tenderness Neuro: Oriented X 3. No motor deficit. No sensory deficit.No cerebellar signs , cranial nerves II-XII intact Course Reevaluation(s) Reevaluation #1: Patient came with SVT heart rate is 170, just before giving Adenocard patient broke into sinus tachycardia with heart rate in 100-110 will give IV Lopressor Time: 17:24 MDM - Arrhythmia/Palpitations MDM Narrative Medical decision making narrative: Patient with episodes of SVT in the past came with SVT episode for 2 hours spontaneous converted to normal sinus rhythm during stay in the ER patient vitals are stable will discharge patient home S decrease caffeine intake Lab Data Attestation: I reviewed the patient's lab results. Result diagrams: 07/18/22 17:46 07/18/22 17:46 Labs: Lab Results 07/18/22 07/18/22 07/18/22 Range/Units 17:45 17:46 17:46 WBC 6.3 (4.8-10.8) X10*3/uL RBC 4.69 (4.20-5.50) X10*6/uL Hgb 13.8 (12.0-16.0) g/dl Hct 42.2 (37.0-47.0) % MCV 90.0 (80.0-98.0) fL MCH 29.4 (27.0-33.0) pg MCHC 32.7 (31.0-35.0) g/dl RDW 12.6 (11.0-16.0) % Plt Count 248 (160-400) X10*3/uL MPV 8.8 L (9.4-12.3) fL Immature Gran % (Auto) 0.2 (0.0-0.4) % Neut % (Auto) 59.7 (45-73) % Lymph % (Auto) 26.0 (20-40) % [place] % (Auto) 11.8 H (2-11) % Eos % (Auto) 1.7 (0-4) % Baso % (Auto) 0.6 (0-2) % Lymph # (Auto) 1.7 (1.2-4.9) X10*3/uL [place] # (Auto) 0.8 (0.1-1.2) X10*3/uL Eos # (Auto) 0.1 (0.0-0.4) X10*3/uL Baso # (Auto) 0.0 (0.0-0.2) X10*3/uL Abs Immat Gran (auto) 0.01 (0.00-0.03) X10*3/uL Absolute Neuts (auto) 3.8 (2.0-8.3) x10*3/uL Absolute Nucleated RBC 0.000 (0.0-0.012) X10*3/uL Nucleated RBC % (auto) 0.0 (0.0-0.2) /100WBC Sodium 142 (135-145) mmol/L Potassium 3.9 (3.3-5.1) mmol/L Chloride 105 (96-108) mmol/L Carbon Dioxide 24 (22-29) mmol/L Anion Gap 17 (12-20) BUN 13 (9-16) mg/dL Creatinine 1.04 (0.5-1.4) mg/dL Estim Creat Clear Calc 82.6 Estimated GFR 56 Random Glucose 152 H (60-115) mg/dL Calcium 8.8 (8.4-10.2) mg/dL Magnesium 2.1 (1.6-2.6) mg/dL Total Bilirubin 0.5 (0.0-1.0) mg/dL AST 21 (5-31) U/L ALT 20 (0-31) U/L Alkaline Phosphatase 56 (39-117) U/L Troponin I High Sens < 3.5 (<3.5-17.0) ng/L Total Protein 7.4 (6.5-8.0) g/dL Albumin 4.0 (3.5-5.0) g/dL ECG Data Attestation: I personally reviewed and interpreted this ECG as follows: Interpretation: SVT with heart rate of 173 beats per minute no acute ST T wave changes no acute ischemic Discharge Plan Discharge Clinical Impression: Supraventricular tachycardia Patient Disposition: Home, Self-Care Instructions: Supraventricular Tachycardia (ED) Additional Instructions: Follow up with nutrition associate Report to the ER if recurrence of the episodes Avoid caffeinated drinks Prescriptions: No Action ibuprofen 600 mg tablet 600 mg PO Q8H PRN (Reason: pain) Qty: 20 0RF cyclobenzaprine 10 mg tablet 10 mg PO BEDTIME PRN (Reason: muscle spasm) Qty: 7 0RF oxycodone 5 mg tablet 5 mg PO Q8H PRN (Reason: pain) Qty: 8 0RF Rx Instructions: Can partially fill prescription upon request Referrals: Sukhwinder Vega MD [Physician] - 1 week Interventions: ED Discharge Assessment Last Done: 07/18/22 21:32 Discharge Date/Time: 07/18/22 21:32
[2022-07-18 17:39] VITALS: PULSE 106; RESP 20; TEMP 36.6; O2SAT 96; BMI 39.5
[2022-07-18 17:46] VITALS: BP 127/87
[2022-07-18 17:50] LABS: MANUAL DIFF FLAG NO
[2022-07-18 17:51] LABS: Basophils Percent Auto 0.6 % (0-2); Eosinophils Absolute Auto 0.1 X10*3/uL (0.0-0.4); Eosinophils Percent Auto 1.7 % (0-4); Hematocrit 42.2 % (37.0-47.0); Hemoglobin 13.8 g/dl (12.0-16.0); Imm Gran Abs Auto 0.01 X10*3/uL (0.00-0.03); Imm Gran Pct Auto 0.2 % (0.0-0.4); Lymphocytes Absolute Auto 1.7 X10*3/uL (1.2-4.9); Mean Corpuscular HGB Conc 32.7 g/dl (31.0-35.0); Mean Corpuscular Hemoglobin 29.4 pg (27.0-33.0); Mean Platelet Volume 8.8 fL (9.4-12.3); Monocytes Absolute Auto 0.8 X10*3/uL (0.1-1.2); Monocytes Percent Auto 11.8 % (2-11); Neutrophils Absolute Auto 3.8 x10*3/uL (2.0-8.3); Neutrophils Percent Auto 59.7 % (45-73); Platelet Count 248 X10*3/uL (160-400); Red Blood Count 4.69 X10*6/uL (4.20-5.50); Red Cell Distribution Width 12.6 % (11.0-16.0); White Blood Count 6.3 X10*3/uL (4.8-10.8)
[2022-07-18] MEDS: Metoprolol Tartrate 5 MG/5 ML VIAL IVPUSH (17:55)
[2022-07-18 18:11] LABS: Alanine Aminotransferase 20 U/L (0-31); Alkaline Phosphatase 56 U/L (39-117); Anion Gap 17 (12-20); Aspartate Amino Transferase 21 U/L (5-31); Bilirubin Total 0.5 mg/dL (0.0-1.0); Blood Urea Nitrogen 13 mg/dL (9-16); Calcium 8.8 mg/dL (8.4-10.2); Carbon Dioxide 24 mmol/L (22-29); Chloride 105 mmol/L (96-108); Creatinine Clr Calc Pharmacy 82.6; Estimated Glomerular Filt Rate 56; Glucose Random 152 mg/dL (60-115); Magnesium 2.1 mg/dL (1.6-2.6); Potassium 3.9 mmol/L (3.3-5.1); Sodium 142 mmol/L (135-145); Total Protein 7.4 g/dL (6.5-8.0)
[2022-07-18 18:14] LABS: Troponin-I High Sensitivity < 3.5 ng/L (<3.5-17.0)
[2022-07-18 21:24] VITALS: BP 127/84; PULSE 86; RESP 22; O2SAT 97
== END 2022-07-18 21:32 | disposition home or self-care (01) ==
PROVIDERS: Emergency Provider Internal Medicine; PCP Internal Medicine
DX: I47.1 Supraventricular tachycardia (principal); R00.2 Palpitations; R07.89 Other chest pain; Z79.899 Other long term (current) drug therapy
CPT/HCPCS: 36415; 80053; 83735; 84484; 85025; 93005; 96374; 96375; 99284; 99285

== ENCOUNTER → 2022-07-21 12:13 | Outpatient (BNVA) | payer OTHER, SELFPAY | PROVIDERS: PCP Internal Medicine; Referring Provider Internal Medicine; Visit Provider Internal Medicine Cardiovascular Disease | DX: R07.9 Chest pain, unspecified (principal); I47.1 Supraventricular tachycardia | CPT/HCPCS: 93005 ==

== ENCOUNTER 2023-06-09 15:43 | Outpatient (AMB) | payer OTHER, SELFPAY ==
--- NOTE | 2023-06-09 15:50 | A.OFFPC_ITS ---
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 Accompanied by: Self / Same As Patient Allergies No Known Allergies Allergy (Verified 06/09/23 15:52) Medication List - Last Reconciled 06/09/23 by BREEZY Bullock No Known Home Meds Tobacco use date assessed: 06/09/23 Dental Screening Dental Screen Date: 06/09/23 Did you have a dental visit in the last 12 months?: No Did you have a dental problem in the last 6 months where you did not have access to dental care?: No Was dental information given to patient?: Patient has dentist HPI 3-4 Cyst In Armpit HPI Details Patient is a 52-year-old female who presents today with cysts in her right armpit on and off for the past few years, worse in the past 2 years, reports these current 3 cysts over 1 month now. Reports odor and pus coming out intermittently. No fever or chills. Reports being sick with cold over the weekend, COVID test was negative, feels fine now. [facility] Medical History Diverticula, colon Diverticulitis Surgical History History of tubal ligation Family History Father No problems noted. Mother No problems noted. Maternal Grandmother No problems noted. Maternal Grandfather No problems noted. Paternal Grandmother Diabetes Paternal Grandfather No problems noted. Social History Housing: House Alcohol intake: never Patient Tobacco Use Status: Never used Tobacco e-Cigarette/Vaping Use: Never Used Second Hand Smoke Exposure: No service: No Current occupational status: employed Cognitive needs: No Hearing needs: No Vision needs: Yes Questionnaire PHQ-9 Over the last 2 weeks, how often have you been bothered by any of the following problems? 1. Little interest or pleasure in doing things: not at all 2. Feeling down, depressed, or hopeless: not at all 3. Trouble falling or staying asleep, or sleeping too much: not at all 4. Feeling tired or having little energy: not at all 5. Poor appetite or overeating: not at all 6. Feeling bad about yourself - or that you are a failure or have let yourself or your family down: not at all 7. Trouble concentrating on things, such as reading the newspaper or watching television: not at all 8. Moving or speaking so slowly that other people could have noticed. Or the opposite - being so fidgety or restless that you have been moving around a lot more than usual: not at all 9. Thoughts that you would be better off or of hurting yourself in some way: not at all Total score: 0 Depression Screening Interpretation: Negative 30618 - PHQ-9 Billing: Yes Source: Developed by Drs. Luis Roe, Luann Real, Juni Gonzalez and colleagues, with an educational katheryn from [employer]. Thrive Questionnaire Date Thrive assessed: 06/09/23 I am a: Patient What is your living situation today?: I have a steady place to live Within the past 12 months, did the food you bought not last and you didn't have the money to get more?: Never true Within the past 12 months, did you worry whether your food would run out before you got money to buy more?: Never true Do you have trouble paying for medicines?: No Do you have trouble getting transportation to medical appointments?: No Do you have trouble paying your heating and electricity bill?: No Do you have trouble taking care of your child, family member or friend?: No Do you have trouble with day-to-day activities such as bathing, preparing meals, shopping, managing finances, etc.?: No Are you currently unemployed and looking for a job?: No Are you interested in more education?: No Please select the resources that you would like help with: None Currently or been in a relationship where the following occur: no concerns reported AUDIT C Alcohol Use Questionnaire (AUDIT-C) 1. How often do you have a drink containing alcohol?: Never 3. How often do you have six or more drinks on one occasion?: Never Total Score: 0 Score Reviewed/Action Taken: No KENNY-7 AMB Questionnaire KENNY-7 Date KENNY - 7 assessed: 06/09/23 Feeling nervous, anxious, or on edge: 0 = Not at all Not being able to stop or control worryin = Not at all Worrying too much about different things: 0 = Not at all Trouble relaxin = Not at all Being so restless that it is hard to sit still: 0 = Not at all Becoming easily annoyed or irritable: 0 = Not at all Feeling afraid as if something awful might happen: 0 = Not at all Total KENNY-7 score (0-4 normal; 5-9 mild; 10-14 moderate; 15-21 severe): 0 Source: Developed by Drs. Luis Roe, Luann Real, Juni Gonzalez and colleagues, with an educational katheryn from [employer]. KENNY-7 Assessment Billing KENNY-7 Assessment Tool: KENNY-7 Assessment 13472 Review of Systems Const Denies body aches, Denies chills, Denies fever(s) and Denies headache(s) Eyes Denies change in vision ENT Denies dizziness, Denies otalgia, Denies headache(s), Denies nasal discharge, Denies sinus pain and Denies sore throat Card Denies chest pain, Denies edema, Denies lightheadedness and Denies dyspnea Resp Denies cough, Denies dyspnea and Denies wheezing GI Denies abdominal pain Denies dysuria Musc Denies myalgias Skin/Breast Reports as per HPI and Denies rash Neuro Denies dizziness and Denies headache(s) Aller/Immun Denies wheezing Physical exam (Primary Care) Vital Signs: Last Vital Signs Pulse 80 06/09/23 15:51 BP 134/84 06/09/23 15:51 Pulse Ox 98 06/09/23 15:51 Oxygen Delivery Method Room Air 06/09/23 15:51 BMI result Body Mass Index 42.0 Tobacco/Smoking Status: Tobacco use Status Tobacco use date assessed 07/29/22 07/29/22 13:15 Patient Tobacco Use Status Never used Tobacco 07/29/22 13:15 e-Cigarette/Vaping Use Never Used 07/29/22 13:15 Depression Screening Interpretation: Negative Thrive Assessment: Date of Thrive Assessment Date Thrive assessed 07/29/22 07/29/22 13:15 Currently or been in a relationship where the following occur: no concerns reported Const General: cooperative and no acute distress Orientation/consciousness: patient oriented x3 HENMT Head: Yes normocephalic and Yes atraumatic Face and sinus: Yes sinuses nontender Mouth: oropharynx normal and moist mucous membranes Throat: Yes posterior oropharynx normal Eyes General: appearance normal, both eyes and all related structures Neck Neck: Yes normal visual inspection, Yes full ROM and Yes no lymphadenopathy Resp Effort & Inspection: normal respiratory effort and able to speak in complete sentences Auscultation: clear to auscultation bilaterally, no crackles, no rales, no rhonchi and no wheezes Cardio Rate: regular rate Rhythm: regular rhythm Heart sounds: S1 normal heart sound present and S2 normal heart sound present GI Auscultation: normal bowel sounds Skin Other: Right armpit with 3 raised areas about 8mm, 1 area with mild pink discharge, tenderness noted, no odor noted, no erythema Neuro General: patient oriented x3 Gait exam (Neuro): Normal gait present Extrem General: Yes full ROM and No edema Assessment and Plan Assessment & Plan (1) Skin cyst: Code(s): L72.9 - Follicular cyst of the skin and subcutaneous tissue, unspecified Plan: Right armpit with 3 raised areas about 8mm, 1 area with mild pink discharge, tenderness noted, no odor noted, no erythema Start doxycycline b.i.d. for 10 days Warm compresses p.r.n. Notify office if no improvement after antibiotic, will consider referral to general surgery for I&D Medications: New doxycycline hyclate 100 mg PO BID 10 days 20 tabs 0RF L72.9 - Follicular cyst of the skin and subcutaneous tissue, unspecified Coding Level of Care Code Est Pt Level 3 (08249) Diagnoses Skin cyst L72.9 Additional Codes KENNY-7 Assessment Billing - KENNY-7 Assessment Tool: KENNY-7 Assessment 07920 ([id number])
[2023-06-09 15:51] VITALS: BP 134/84; PULSE 80; O2SAT 98; BMI 42.0
== END 2023-06-09 16:12 | disposition home or self-care (01) ==
PROVIDERS: PCP Internal Medicine; Visit Provider Nurse Practitioner Family
DX: L72.9 Follicular cyst of the skin and subcutaneous tissue, unspecified (principal)
CPT/HCPCS: 99213

== ENCOUNTER 2023-06-14 11:52 | Outpatient (REF) | payer OTHER, SELFPAY ==
[2023-06-14 12:03] LABS: MANUAL DIFF FLAG NO
[2023-06-14 13:03] LABS: Alanine Aminotransferase 23 U/L (0-31); Albumin Level 4.3 g/dL (3.5-5.0); Alkaline Phosphatase 55 U/L (39-117); Anion Gap 14 (12-20); Aspartate Amino Transferase 22 U/L (5-31); Bilirubin Total 0.7 mg/dL (0.0-1.0); Blood Urea Nitrogen 13 mg/dL (9-16); Calcium 10.2 mg/dL (8.4-10.2); Carbon Dioxide 27 mmol/L (22-29); Chloride 106 mmol/L (96-108); Cholesterol 220 mg/dL (<200); Estimated Glomerular Filt Rate > 60; Glucose Fasting 90 mg/dL (60-99); HDL Cholesterol 49 mg/dL (>40); LDL Cholesterol Calculated 154 mg/dL (<100); Potassium 4.3 mmol/L (3.3-5.1); Sodium 143 mmol/L (135-145); Triglycerides 86 mg/dL (<150)
[2023-06-14 13:17] LABS: Thyroid Stimulating Hormone 1.84 uIU/mL (0.32-4.0)
[2023-06-14 13:41] LABS: Basophils Percent Auto 0.6 % (0-2); Eosinophils Absolute Auto 0.1 X10*3/uL (0.0-0.4); Eosinophils Percent Auto 2.1 % (0-4); Hematocrit 44.3 % (37.0-47.0); Hemoglobin 14.1 g/dl (12.0-16.0); Imm Gran Abs Auto 0.01 X10*3/uL (0.00-0.03); Imm Gran Pct Auto 0.1 % (0.0-0.4); Lymphocytes Absolute Auto 2.7 X10*3/uL (1.2-4.9); Lymphocytes Percent Auto 39.3 % (20-40); Mean Corpuscular HGB Conc 31.8 g/dl (31.0-35.0); Mean Corpuscular Hemoglobin 29.3 pg (27.0-33.0); Mean Corpuscular Volume 91.9 fL (80.0-98.0); Monocytes Absolute Auto 0.5 X10*3/uL (0.1-1.2); Monocytes Percent Auto 7.1 % (2-11); Neutrophils Absolute Auto 3.4 x10*3/uL (2.0-8.3); Neutrophils Percent Auto 50.8 % (45-73); Platelet Count 294 X10*3/uL (160-400); Red Blood Count 4.82 X10*6/uL (4.20-5.50); Red Cell Distribution Width 12.3 % (11.0-16.0); White Blood Count 6.8 X10*3/uL (4.8-10.8)
== END 2023-06-14 11:53 | disposition home or self-care (01) ==
LOC: HO.LAB 11:52
PROVIDERS: PCP Internal Medicine; Visit Provider Internal Medicine
DX: E66.01 Morbid (severe) obesity due to excess calories (principal)
CPT/HCPCS: 36415; 80053; 80061; 84443; 85025

== ENCOUNTER 2023-11-16 13:45 | Outpatient (AMB) | payer OTHER, SELFPAY ==
[2023-11-16 13:50] VITALS: BP 128/82; BMI 41.8
--- NOTE | 2023-11-16 13:50 | A.OFFPC_ITS ---
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 Accompanied by: Self / Same As Patient Allergies No Known Allergies Allergy (Verified 11/16/23 14:00) Medication List - Last Reconciled 11/16/23 by Digna Mathur MD No Known Home Meds Tobacco use date assessed: 11/16/23 Dental Screening Dental Screen Date: 11/16/23 Did you have a dental visit in the last 12 months?: No Did you have a dental problem in the last 6 months where you did not have access to dental care?: No Was dental information given to patient?: Patient has dentist HPI HPI Comments History of Present Illness Details This is a 53-year-old female with morbid obesity that comes complaining of intermittent skin lesions in axillary area. No pain or itchiness. Has not had a mammogram in over 2 years. Has not had a colonoscopy but prefers to do Cologuard. Last Pap smear was 2014 and will be sent to OBGYN for this matter. No chest pain or shortness of breath. She is morbidly obese and was advised to do diet and exercise to reach BMI goal less than 30. [facility] Medical History (Updated 11/16/23 @ 14:08 by Digna Mathur MD) Diverticulitis Diverticula, colon Surgical History History of tubal ligation Family History (Updated 11/16/23 @ 13:51 by FELIBERTO Lund) Father No problems noted. Mother No problems noted. Maternal Grandmother No problems noted. Maternal Grandfather No problems noted. Paternal Grandmother Diabetes Paternal Grandfather No problems noted. Social History Housing: House Alcohol intake: never Patient Tobacco Use Status: Never used Tobacco e-Cigarette/Vaping Use: Never Used Second Hand Smoke Exposure: No service: No Current occupational status: employed Current occupational exposures/hazards: No Cognitive needs: No Hearing needs: No Vision needs: Yes Questionnaire PHQ-9 Over the last 2 weeks, how often have you been bothered by any of the following problems? 1. Little interest or pleasure in doing things: not at all 2. Feeling down, depressed, or hopeless: not at all 3. Trouble falling or staying asleep, or sleeping too much: not at all 4. Feeling tired or having little energy: several days 5. Poor appetite or overeating: not at all 6. Feeling bad about yourself - or that you are a failure or have let yourself or your family down: not at all 7. Trouble concentrating on things, such as reading the newspaper or watching television: not at all 8. Moving or speaking so slowly that other people could have noticed. Or the opposite - being so fidgety or restless that you have been moving around a lot more than usual: not at all 9. Thoughts that you would be better off or of hurting yourself in some way: not at all Total score: 1 Depression Screening Interpretation: Negative Depression Screening Done: Yes 12407 - PHQ-9 Billing: Yes Source: Developed by Drs. Luis Roe, Luann Real, Juni Gonzalez and colleagues, with an educational katheryn from [employer]. Thrive Questionnaire Date Thrive assessed: 11/16/23 I am a: Patient What is your living situation today?: I have a steady place to live Within the past 12 months, did the food you bought not last and you didn't have the money to get more?: Never true Within the past 12 months, did you worry whether your food would run out before you got money to buy more?: Never true Do you have trouble paying for medicines?: No Do you have trouble getting transportation to medical appointments?: No Do you have trouble paying your heating and electricity bill?: No Do you have trouble taking care of your child, family member or friend?: No Do you have trouble with day-to-day activities such as bathing, preparing meals, shopping, managing finances, etc.?: No Are you currently unemployed and looking for a job?: No Are you interested in more education?: No Please select the resources that you would like help with: None Currently or been in a relationship where the following occur: no concerns reported THRIVE Score: 0 AUDIT C Alcohol Use Questionnaire (AUDIT-C) 1. How often do you have a drink containing alcohol?: Never Total Score: 0 KENNY-7 AMB Questionnaire KENNY-7 Date KENNY - 7 assessed: 11/16/23 Feeling nervous, anxious, or on edge: 0 = Not at all Not being able to stop or control worryin = Not at all Worrying too much about different things: 0 = Not at all Trouble relaxin = Not at all Being so restless that it is hard to sit still: 0 = Not at all Becoming easily annoyed or irritable: 0 = Not at all Feeling afraid as if something awful might happen: 0 = Not at all Total KENNY-7 score (0-4 normal; 5-9 mild; 10-14 moderate; 15-21 severe): 0 Source: Developed by Drs. Luis Roe, Luann Real, Juni Gonzalez and colleagues, with an educational katheryn from [employer]. KENNY-7 Assessment Billing KENNY-7 Assessment Tool: KENNY-7 Assessment 81405 Review of Systems Const All systems reviewed & are unremarkable except as noted in HPI and below Eyes Reports no additional complaints, Denies change in vision and Denies other visual disturbances Card Denies chest pain at rest, Denies chest pain with activity, Denies edema, Denies irregular heart rhythm, Denies claudication, Denies dyspnea, Denies dyspnea on exertion, Denies orthopnea, Denies paroxysmal nocturnal dyspnea and Denies slow heart rate Resp Denies cough, Denies dyspnea and Denies dyspnea on exertion GI Denies abdominal pain, Denies change in bowel habits, Denies excessive flatus, Denies nausea and Denies vomiting Denies urinary incontinence, Denies urinary hesitancy and Denies urinary urgency Musc Denies abnormal gait, Denies atrophy, Denies deformity and Denies limited range of motion Skin/Breast Denies bleeding lesions, Denies changing lesions and Denies rash Neuro Denies abnormal gait, Denies behavioral changes and Denies lack of coordination Psych Denies behavioral changes Physical exam (Primary Care) Vital Signs: Last Vital Signs BP 128/82 11/16/23 13:50 BMI result Body Mass Index 41.8 Tobacco/Smoking Status: Tobacco use Status Tobacco use date assessed 11/16/23 11/16/23 13:52 Patient Tobacco Use Status Never used Tobacco 11/16/23 13:52 e-Cigarette/Vaping Use Never Used 11/16/23 13:52 PHQ-9: PHQ-9 Score PHQ-9: Total score 1 11/16/23 13:56 Depression Screening Interpretation: Negative Thrive Assessment: Date of Thrive Assessment Date Thrive assessed 11/16/23 11/16/23 13:55 Currently or been in a relationship where the following occur: no concerns reported Eyes General: appearance normal, both eyes and all related structures Eyelids: Yes eyelids normal Conjunctivae: conjunctivae normal Neck Neck: Yes normal visual inspection and Yes supple Resp Effort & Inspection: normal respiratory effort Auscultation: clear to auscultation bilaterally Cardio Jugular venous distension: no JVD Rate: regular rate Rhythm: regular rhythm Heart sounds: S1 normal heart sound present and S2 normal heart sound present Extrem General: Yes full ROM Office Procedures Flu Questionnaire Does the patient have a severe egg allergy?: No Immunizations flu vacc [id number] 6mos up(PF) 60 mcg(15 mcgx4)/0.5 mL IM syringe Performing Provider: Digna Mathur MD [facility] Documented (not given) by: FELIBERTO Lund on 11/16/23 13:54 Reason Not Given: Patient Refused Assessment and Plan Assessment & Plan (1) Skin lesion: Code(s): L98.9 - Disorder of the skin and subcutaneous tissue, unspecified Plan: Referred to dermatology. (2) Morbid obesity: Code(s): E66.01 - Morbid (severe) obesity due to excess calories Plan: Start diet and exercise. BMI goal is less than 30. 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
== END 2023-11-16 14:09 | disposition home or self-care (01) ==
PROVIDERS: PCP Internal Medicine; Visit Provider Internal Medicine
DX: L98.9 Disorder of the skin and subcutaneous tissue, unspecified (principal); E66.01 Morbid (severe) obesity due to excess calories; Z68.41 Body mass index [BMI] 40.0-44.9, adult
CPT/HCPCS: 99213

== ENCOUNTER 2023-12-22 13:03 | Outpatient (AMB) | payer OTHER, SELFPAY ==
--- NOTE | 2023-12-22 13:13 | A.OFFVIS_ITS ---
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 Chung then. She had her children in [place] her 1st child was born at [place] and through discussion she does remember that she came to the [place] [facility]. 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 Work is challenging. She has 3 grown children she has a grand children she feels her health is good she walks for exercise. She has a mammogram coming up she has absolutely no worries about STDs and has no abnormal discharge. Her periods went away when she turned 52. She is a little bit less sexually active now than she used to be but still is with her of 30 something years has no worries. [facility] Medical History Diverticulitis Diverticula, colon Surgical History History of tubal ligation Family History Father No problems noted. Mother No problems noted. Maternal Grandmother No problems noted. Maternal Grandfather No problems noted. Paternal Grandmother Diabetes Paternal Grandfather No problems noted. Social History Housing: House Alcohol intake: never Patient Tobacco Use Status: Never used Tobacco e-Cigarette/Vaping Use: Never Used Second Hand Smoke Exposure: No service: No Current occupational status: employed Current occupational exposures/hazards: No Cognitive needs: No Hearing needs: No Vision needs: Yes Female Reproductive History Menstrual Age of Menarche: 15 Duration of menses: 3-5 days control method: permanent sterilization Total pregnancies: 3 Full term: 3 Date of last pap smear: 04/10/15 (negative) History of abnormal pap smear: No History of abnormal mammogram: No (next mammogram on 01/06/24) Physical Exam Vital Signs: Last Vital Signs BP 126/78 12/22/23 13:14 BMI result Body Mass Index 42.3 Const General: healthy appearing, comfortable, no acute distress, well developed and alert Nutritional Appearance: average body habitus and obese Orientation/consciousness: patient oriented x3 Limitations: no limitations HEENT Head: Yes normocephalic Neck Neck: Yes normal visual inspection Chest Chest palpation & inspection: normal inspection of the chest Breast/axilla inspection: normal inspection of the breasts and normal inspection of the axillae Breast/axilla palpation: normal palpation of the breasts and normal palpation of the axillae Resp Effort & Inspection: normal respiratory effort GI Inspection: Yes normal to inspection, No Abdominal wall edema and No distended Palpation (GI): Soft to palpation and nontender Other: External exam within normal limits cervix multiparous pink smooth normal appearing white discharge uterus slightly difficult to feel secondary to adipose tissue adnexa nontender patient has very good tone with Kegel General: Yes bladder normal to palpation External Female Exam: normal external appearance and normal appearance of the urethra Speculum Exam - Vagina: normal appearance of the vagina, normal palpation and normal vaginal discharge Speculum Exam - Cervix: normal appearance of the cervix, normal palpation and nontender Bimanual exam- vagina & uterus: normal bimanual exam, normal palpation, uterine size normal, bladder normal to palpation, consistency normal, normal palpation, uterine mobility normal, uterine shape normal, No Cervical tenderness present, non-tender and no cervical motion tenderness Bimanual Exam- Adnexa, other: normal adnexae, no masses, normal and No adnexal tenderness Neuro General: patient oriented x3 Assessment & Plan Assessment & Plan (1) Screening for cervical cancer: Comment: No history of abnormals; last 10/2014 Pap done 12/22/2019 Code(s): Z12.4 - Encounter for screening for malignant neoplasm of cervix (2) Morbid obesity: Code(s): E66.01 - Morbid (severe) obesity due to excess calories (3) Well woman exam with routine gynecological exam: Code(s): Z01.419 - Encounter for gynecological examination (general) (routine) without abnormal findings (4) Breast cancer screening: Comment: Has mammograms set up for the end of the month Code(s): Z12.39 - Encounter for other screening for malignant neoplasm of breast Plan -----Discussed in this visit the following: healthy balanced diet, regular and consistent exercise, getting recommended health screens, doing the best she can for her particular health concerns, kegel exercises, pap smear screening and followup recommendations, mammography screening and SBE, normal changes in cycles in her life stage--- . Reviewed general good health practices which she is trying to maintain. Weight was not addressed directly at this visit. Patient had no concerns whatsoever about STDs or any abnormal discharge so testing was declined. Pap smear was done discussed that if this Pap smear is normal and her next would be in 5 years discussed that we do recommend director of women's services annual exams those sometimes as we get older if were not having any specific director of women's services concerns are more pressing health needs might be addressed better with primary care but if there was anything abnormal itch deserves follow-up. 1 Orders: Orders Pap Smear Today Z01.419 - Encounter for gynecological examination (general) (routine) without abnormal findings Coding Level of Care Code New Pt Prev Care 40-64y(31480) Diagnoses Screening for cervical cancer Z12.4 Morbid obesity E66.01 Well woman exam with routine gynecological exam Z01.419 Breast cancer screening Z12.39
[2023-12-22 13:14] VITALS: BP 126/78; BMI 42.3
== END 2023-12-22 14:27 | disposition home or self-care (01) ==
LOC: HO.HWSM 13:05
PROVIDERS: PCP Internal Medicine; Visit Provider Advanced Practice Midwife
DX: Z01.419 Encounter for gynecological examination (general) (routine) without abnormal findings (principal); E66.01 Morbid (severe) obesity due to excess calories
CPT/HCPCS: 99386

== ENCOUNTER 2023-12-22 13:03 | Outpatient (REF) | payer OTHER, SELFPAY ==
[2023-12-28 12:49] LABS: HPV mRNA E6/E7 rflx Not Detected (Not Detected)
== END 2023-12-22 13:04 | disposition home or self-care (01) ==
LOC: HO.LAB 13:03
PROVIDERS: PCP Internal Medicine; Visit Provider Advanced Practice Midwife
DX: Z01.419 Encounter for gynecological examination (general) (routine) without abnormal findings (principal); Z11.51 Encounter for screening for human papillomavirus (HPV)
CPT/HCPCS: 87624; 88142

== ENCOUNTER 2024-06-07 07:38 | Outpatient (REF) | payer OTHER, SELFPAY ==
[2024-06-07 08:19] LABS: Appearance Urine Turbid; Color Urine Yellow; Glucose Urine UA Negative (Negative); Leukocyte Esterase Urine Large (3+) (Negative); Nitrite Urine Negative (Negative); PH 5.5 (5.0-9.0); UMIC TRIGGER UACC YES; Urine Blood Trace (Negative); Urine Ketones Negative (Negative); Urine Protein Trace mg/dL (Neg-Trace)
[2024-06-07 08:36] LABS: Bacteria Urine 4+ (None Seen); Hyaline Casts Urine 0-2 /LPF (0-2); RBC Urine 0-2 /HPF (0-2); UACC Culture Trigger YES; WBC Urine >50 /HPF (0-5)
== END 2024-06-07 07:39 | disposition home or self-care (01) ==
LOC: HO.LAB 07:38
PROVIDERS: PCP Internal Medicine; Visit Provider Internal Medicine
DX: R30.0 Dysuria (principal)
CPT/HCPCS: 81001; 87086

== ENCOUNTER 2024-06-13 14:22 | Outpatient (AMB) | payer OTHER, SELFPAY ==
[2024-06-13 14:23] VITALS: BP 120/82; BMI 44.1
--- NOTE | 2024-06-13 14:23 | MHC.PC.OV ---
Vital Signs 06/13/24 14:23 Height 5 ft 6 in Weight 273 lb BMI 44.1 BP 120/82 Blood Pressure Location Lt brachial Position Sitting Intake Visit Reasons: ANNUAL Intake Note: Patient here for an annual physical exam Client Support Analyst Required: No Accompanied by: Self / Same As Patient Allergies No Known Allergies Allergy (Verified 06/13/24 14:35) Medication List - Last Reconciled 06/13/24 by Digna Mathur MD No Known Home Meds Tobacco use date assessed: 11/16/23 Dental Screening Dental Screen Date: 11/16/23 HPI HPI Comments History of Present Illness Details This is a 53-year-old female with morbid obesity that comes for her physical exam. Mammogram will be order because it has not been done in over 2 years. Had Cologuard negative done 2023. Pap smear done 2023 was normal. She is morbidly obese and was advised to do diet and exercise. Will start Wegovy if insurance approves. BMI goal is less than 30. [facility] Medical History (Updated 06/13/24 @ 20:13 by Digna Mathur MD) SVT (supraventricular tachycardia) Diverticulitis Diverticula, colon Surgical History History of tubal ligation Family History Father No problems noted. Mother No problems noted. Maternal Grandmother No problems noted. Maternal Grandfather No problems noted. Paternal Grandmother Diabetes Paternal Grandfather No problems noted. Social History Housing: House Alcohol intake: never Patient Tobacco Use Status: Never used Tobacco e-Cigarette/Vaping Use: Never Used Second Hand Smoke Exposure: No service: No Current occupational status: employed Current occupational exposures/hazards: No Cognitive needs: No Hearing needs: No Vision needs: Yes Female Reproductive History Menstrual Age of Menarche: 15 Questionnaire PHQ-9 Over the last 2 weeks, how often have you been bothered by any of the following problems? 1. Little interest or pleasure in doing things: not at all 2. Feeling down, depressed, or hopeless: not at all 3. Trouble falling or staying asleep, or sleeping too much: not at all 4. Feeling tired or having little energy: several days 5. Poor appetite or overeating: several days 6. Feeling bad about yourself - or that you are a failure or have let yourself or your family down: not at all 7. Trouble concentrating on things, such as reading the newspaper or watching television: not at all 8. Moving or speaking so slowly that other people could have noticed. Or the opposite - being so fidgety or restless that you have been moving around a lot more than usual: not at all 9. Thoughts that you would be better off or of hurting yourself in some way: not at all Total score: 2 Depression Screening Interpretation: Positive Depression Screening Follow-up: Existing condition and Follow-up Visit Requested Depression Screening Done: Yes 31676 - PHQ-9 Billing: Yes Source: Developed by Drs. Luis Roe, Luann Real, Juni Gonzalez and colleagues, with an educational katheryn from [employer]. Thrive Questionnaire Date Thrive assessed: 06/13/24 I am a: Patient What is your living situation today?: I have a steady place to live Within the past 12 months, did the food you bought not last and you didn't have the money to get more?: Never true Within the past 12 months, did you worry whether your food would run out before you got money to buy more?: Never true Do you have trouble paying for medicines?: No Do you have trouble getting transportation to medical appointments?: No Do you have trouble paying your heating and electricity bill?: No Do you have trouble taking care of your child, family member or friend?: No Do you have trouble with day-to-day activities such as bathing, preparing meals, shopping, managing finances, etc.?: No Are you currently unemployed and looking for a job?: No Are you interested in more education?: No Please select the resources that you would like help with: None Currently or been in a relationship where the following occur: No concerns reported THRIVE Score: 0 AUDIT C Alcohol Use Questionnaire (AUDIT-C) 1. How often do you have a drink containing alcohol?: Never Total Score: 0 Score Reviewed/Action Taken: No KENNY-7 AMB Questionnaire KENNY-7 Date KENNY - 7 assessed: 06/13/24 Feeling nervous, anxious, or on edge: 0 = Not at all Not being able to stop or control worryin = Not at all Worrying too much about different things: 0 = Not at all Trouble relaxin = Not at all Being so restless that it is hard to sit still: 0 = Not at all Becoming easily annoyed or irritable: 0 = Not at all Feeling afraid as if something awful might happen: 0 = Not at all Total KENNY-7 score (0-4 normal; 5-9 mild; 10-14 moderate; 15-21 severe): 0 Source: Developed by Drs. Luis Roe, Luann Real, Juni Gonzalez and colleagues, with an educational katheryn from [employer]. KENNY-7 Assessment Billing KENNY-7 Assessment Tool: KENNY-7 Assessment 78289 Review of Systems Const All systems reviewed & are unremarkable except as noted in HPI and below Card Denies chest pain at rest, Denies chest pain with activity, Denies edema, Denies irregular heart rhythm, Denies claudication, Denies dyspnea, Denies dyspnea on exertion, Denies orthopnea, Denies paroxysmal nocturnal dyspnea and Denies slow heart rate Resp Denies cough, Denies dyspnea and Denies dyspnea on exertion GI Denies abdominal pain, Denies change in bowel habits, Denies excessive flatus, Denies nausea and Denies vomiting Denies urinary incontinence, Denies urinary hesitancy and Denies urinary urgency Musc Denies abnormal gait, Denies atrophy, Denies deformity and Denies limited range of motion Skin/Breast Denies bleeding lesions, Denies changing lesions and Denies rash Neuro Denies abnormal gait, Denies behavioral changes and Denies lack of coordination Psych Denies behavioral changes Physical exam (Primary Care) Vital Signs: Last Vital Signs BP 120/82 06/13/24 14:23 BMI result Body Mass Index 44.1 Tobacco/Smoking Status: Tobacco use Status Tobacco use date assessed 11/16/23 06/13/24 14:29 Patient Tobacco Use Status Never used Tobacco 06/13/24 14:29 e-Cigarette/Vaping Use Never Used 06/13/24 14:29 PHQ-9: PHQ-9 Score PHQ-9: Total score 2 06/13/24 14:38 Depression Screening Interpretation: Positive Depression Screening Follow-up: Existing condition and Follow-up Visit Requested Thrive Assessment: Date of Thrive Assessment Date Thrive assessed 06/13/24 06/13/24 14:29 Currently or been in a relationship where the following occur: No concerns reported [facility] Head: Yes normal to inspection, Yes normocephalic and Yes atraumatic Ears: external ears normal Eyes General: appearance normal, both eyes and all related structures Eyelids: Yes eyelids normal Conjunctivae: conjunctivae normal Neck Neck: Yes normal visual inspection and Yes supple Resp Effort & Inspection: normal respiratory effort Auscultation: clear to auscultation bilaterally Cardio Jugular venous distension: no JVD Rate: regular rate Rhythm: regular rhythm Heart sounds: S1 normal heart sound present and S2 normal heart sound present GI Inspection: Yes normal to inspection Palpation (GI): Soft to palpation and nontender Auscultation: normal bowel sounds Skin General skin exam: no rashes or lesions noted Neuro General: no focal motor deficits Extrem General: Yes full ROM Psych Appearance: grossly normal Assessment and Plan Assessment & Plan (1) Physical exam: Code(s): Z00.00 - Encounter for general adult medical examination without abnormal findings Plan: Repeat in a year. (2) Morbid obesity: Code(s): E66.01 - Morbid (severe) obesity due to excess calories Plan: Start diet and exercise. BMI goal is less than 30. Orders: Orders MM screening mammo BI Today Z12.31 - Encounter for screening mammogram for malignant neoplasm of breast Lipid Panel Today E78.5 - Hyperlipidemia, unspecified UA CC w/rflx Micro + Cult 6 Weeks R31.29 - Other microscopic hematuria Comprehensive Milo. Panel Fast Today Z00.00 - Encounter for general adult medical examination without abnormal findings Medications: New semaglutide (weight loss) (Wegovy) administer weeks 1 through 4 of therapy 0.25 mg (0.5 mL) subcut QWEEK 4 weeks 2 mL 0RF E66.01 - Morbid (severe) obesity due to excess calories Coding Level of Care Code Est Pt Prev Care 40-64y(26592) Diagnoses Physical exam Z00.00 Morbid obesity E66.01 Additional Codes KENNY-7 Assessment Billing - KENNY-7 Assessment Tool: KENNY-7 Assessment 57431 ([id number]) Time Spent (min) 31
== END 2024-06-13 14:44 | disposition home or self-care (01) ==
PROVIDERS: PCP Internal Medicine; Visit Provider Internal Medicine
DX: Z00.00 Encounter for general adult medical examination without abnormal findings (principal); E66.01 Morbid (severe) obesity due to excess calories; Z68.41 Body mass index [BMI] 40.0-44.9, adult
CPT/HCPCS: 99396

== ENCOUNTER 2024-08-22 09:44 | Outpatient (AMB) | payer OTHER, SELFPAY ==
[2024-08-22 09:49] VITALS: BP 124/86; PULSE 96; TEMP 36.7; O2SAT 97; BMI 44.4
--- NOTE | 2024-08-22 09:49 | AM.OFFWIN_ITS ---
Intake Vital Signs 3 08/22/24 09:49 Height 5 ft 6 in Weight 275 lb 4 oz BMI 44.4 BP 124/86 Blood Pressure Location Lt brachial Position Sitting Pulse 96 Pulse Source Pulse Oximeter Temp 98.1 F Temp Source Oral Pulse Oximetry (%) 97 Oxygen Delivery Method Room Air Intake Visit Reasons: EP LT Trap/shoulder pain Patient Tobacco Use Status: Never used Tobacco Allergies No Known Allergies Allergy (Verified 08/22/24 09:51) Medication List - Last Reconciled 08/22/24 by Jabari Wall MD semaglutide (weight loss) (Wegovy) 0.25 mg (0.5 mL) subcut QWEEK 4 weeks Do you need a note to return to daycare/school/sports/work: Yes HPI EP LT Trap/shoulder pain 2 HPI0 Details Patient is a 53-year-old female came in today to be evaluated for pain left shoulder neck area Which is going on for the past 2 or 3 days 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 with food for 10 days Patient is to follow with primary care if not better. [facility] Medical History SVT (supraventricular tachycardia) Diverticulitis Diverticula, colon Surgical History History of tubal ligation Family History Father No problems noted. Mother No problems noted. Maternal Grandmother No problems noted. Maternal Grandfather No problems noted. Paternal Grandmother Diabetes Paternal Grandfather No problems noted. Social History Housing: House Alcohol intake: never Patient Tobacco Use Status: Never used Tobacco e-Cigarette/Vaping Use: Never Used Second Hand Smoke Exposure: No service: No Current occupational status: employed Current occupational exposures/hazards: No Cognitive needs: No Hearing needs: No Vision needs: Yes Female Reproductive History Menstrual Age of Menarche: 15 Review of Systems Const All systems reviewed & are unremarkable except as noted in HPI and below Physical Exam Vital Signs: Last Vital Signs Temp 98.1 F 08/22/24 09:49 Pulse 96 08/22/24 09:49 BP 124/86 08/22/24 09:49 Pulse Ox 97 08/22/24 09:49 Oxygen Delivery Method Room Air 08/22/24 09:49 BMI result Body Mass Index 44.4 Const General: no acute distress Orientation/consciousness: patient oriented x3 Eyes General: appearance normal, both eyes and all related structures Neck Other: Pain with movement of the neck left trapezius shoulder area Resp Effort & Inspection: normal respiratory effort and able to speak in complete sentences Back/Spine/Pelvis Back/spine/pelvis image: 2 1. Pain with palpation Neuro General: patient oriented x3 Extrem Other: Pain with lifting of left arm Psych Mental Status: mental status grossly normal Assessment & Plan Assessment & Plan (1) Strain of left trapezius muscle: Code(s): S46.812A - Strain of other muscles, fascia and tendons at shoulder and upper arm level, left arm, initial encounter Qualifiers: Encounter type: initial encounter Qualified Code(s): S46.812A - Strain of other muscles, fascia and tendons at shoulder and upper arm level, left arm, initial encounter Plan Patient is a 53-year-old female came in today to be evaluated for pain left shoulder neck area Which is going on for the past 2 or 3 days 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 with food for 10 days Patient is to follow with primary care if not better. Medications: New 2 diclofenac sodium 75 mg PO BID 20 tabs 0RF pain 10 days Coding Level of Care Code Est Pt Level 3 (33090) Diagnoses Strain of left trapezius muscle, initial encounter S46.812A Encounter type: initial encounter
== END 2024-08-22 10:03 | disposition home or self-care (01) ==
PROVIDERS: PCP Internal Medicine; Visit Provider Internal Medicine
DX: S46.812A Strain of other muscles, fascia and tendons at shoulder and upper arm level, left arm, initial encounter (principal)

== ENCOUNTER 2024-09-10 07:54 | Emergency (ER) | payer SELFPAY ==
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
[2024-09-10 08:07] VITALS: BP 155/88; PULSE 80; RESP 16; TEMP 36.6; O2SAT 97; BMI 43.7
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
[2024-09-10] MEDS: Acetaminophen 325 MG TABLET 975 MG PO (09:55)
[2024-09-10 10:11] VITALS: BP 132/86; PULSE 68; RESP 20; TEMP 36.6; O2SAT 98
== END 2024-09-10 10:12 | disposition home or self-care (01) ==
PROVIDERS: Emergency Provider Emergency Medicine; PCP Internal Medicine
DX: S13.4XXA Sprain of ligaments of cervical spine, initial encounter (principal); R07.89 Other chest pain; V43.52XA Car driver injured in collision with other type car in traffic accident, initial encounter; Y93.9 Activity, unspecified; Y92.410 Unspecified street and highway as the place of occurrence of the external cause; Y99.9 Unspecified external cause status; R07.9 Chest pain, unspecified
CPT/HCPCS: 71101; 94010; 99283

== ENCOUNTER 2024-09-30 14:59 | Emergency (ER) | payer OTHER, SELFPAY ==
--- NOTE | 2024-09-30 15:01 | ECG_ITS ---
Test Reason : cp Blood Pressure : / mmHG Vent. Rate : 161 BPM Atrial Rate : 000 BPM P-R Int : 000 ms QRS Dur : 074 ms QT Int : 296 ms P-R-T Axes : 000 069 048 degrees QTc Int : 484 ms Supraventricular tachycardia Abnormal ECG When compared with ECG of 18-JUL-2022 17:04, No significant changes seen Referred By: Generic ED Physician Electronically Signed By:CHRISTOPH MUJICA
[2024-09-30 15:10] VITALS: BP 128/96; PULSE 157; RESP 28; TEMP 36.6; O2SAT 97; BMI 45.0
[2024-09-30] MEDS: Adenosine 6 MG/2 ML VIAL IVPUSH (15:10)
--- NOTE | 2024-09-30 15:18 | ECG_ITS ---
Test Reason : SVT Blood Pressure : / mmHG Vent. Rate : 099 BPM Atrial Rate : 099 BPM P-R Int : 190 ms QRS Dur : 076 ms QT Int : 358 ms P-R-T Axes : 051 059 065 degrees QTc Int : 459 ms Normal sinus rhythm Normal ECG Referred By: Brittany Abdalla Electronically Signed By:LACHO PHAM
--- NOTE | 2024-09-30 15:21 | ED_ITS ---
HPI - Chest Pain General Chief Complaint: Chest Pain Stated Complaint: chest pain Time Seen by Provider: 09/30/24 15:08 Source: patient Mode of arrival: ambulatory Limitations: no limitations History of Present Illness ED Provider: JW Plunkett HPI narrative: This is a 54-year-old female history of SVT, obesity presenting to the emergency department with palpitations, chest pressure and lightheadedness that started about an hour prior to arrival she reports she just finished eating started feeling chest discomfort, palpitations and then decided to come in to be evaluated. He reports about a year ago she had a similar episode. She reports that they had to give her medicines to get her heart into a normal rhythm. She denies associated fevers, chills, shortness of breath, headache, vision changes, weakness. Denies drugs and alcohol Related Data Previous Rx's ?Medication ?Instructions ?Recorded semaglutide (weight loss) 0.25 0.25 mg (0.5 mL) subcut QWEEK 4 06/13/24 mg/0.5 mL subcutaneous pen weeks #2 mL injector (Cyndi) diclofenac sodium 75 mg 75 mg PO BID pain 10 days #20 tabs 08/22/24 tablet,delayed release acetaminophen 500 mg tablet 500 mg PO Q6H PRN pain #30 tabs 09/10/24 (Tylenol Extra Strength) cyclobenzaprine 10 mg tablet 10 mg PO TID PRN muscle spasm #14 09/10/24 tabs ibuprofen 600 mg tablet 600 mg PO Q6H PRN pain #30 tabs 09/10/24 lidocaine 5 % topical patch 1 patch topical DAILY #30 ea 09/10/24 (Lidoderm) metoprolol tartrate 25 mg tablet 12.5 mg (1/2 x 25 mg) PO ONCE PRN 09/30/24 svt #14 tabs Allergies Allergy/AdvReac Type Severity Reaction Status Date / Time No Known Allergies Allergy Verified 09/30/24 15:11 Review of Systems 2 Review of Systems: Yes all other systems are reviewed and are negative PMFSH Past Medical History Attestation statement: The following information was validated with the patient. Source: old records reviewed and nursing notes reviewed Medical History SVT (supraventricular tachycardia) Diverticulitis Diverticula, colon Surgical History History of tubal ligation Family History Family History Father No problems noted. Mother No problems noted. Maternal Grandmother No problems noted. Maternal Grandfather No problems noted. Paternal Grandmother Diabetes Paternal Grandfather No problems noted. Social History Social History Housing: House Alcohol intake: never Patient Tobacco Use Status: Never used Tobacco Smoked in Last 30 Days: No e-Cigarette/Vaping Use: Never Used Second Hand Smoke Exposure: No Use of substances other than those prescribed or required for medical reasons: No Advance Directives: No Advance Directives Information Provided: Yes Do you have a plan to hurt others: No Plan service: No Current occupational status: employed Current occupational exposures/hazards: No Cognitive needs: No Hearing needs: No Vision needs: Yes Physical Exam 2 Vital Signs: Vital Signs: Last Vital Signs Temp 98.2 F 09/30/24 15:26 Pulse 99 09/30/24 15:26 Resp 18 09/30/24 15:26 BP 132/85 09/30/24 15:26 Pulse Ox 94 09/30/24 15:26 O2 Del Method Room Air 09/30/24 15:26 BMI result Body Mass Index 45.0 vss Appearance: Alert.? Oriented X3.? No acute distress.? Head: Normocephalic, atraumatic, no step-offs or deformities Eyes: Pupils equal, round and reactive to light.? CVS: Rapid regular heart rate around 150-160.? Pulses normal.? Respiratory: No respiratory distress.? Breath sounds normal.? Abdomen: Soft and nontender.? Skin: Skin warm and dry.? Normal skin color.? Normal skin turgor.? Extremities: No lower extremity edema.? No calf ttp. 5/5 strength to bilateral upper and lower extremities Neuro: Oriented X 3.? No motor deficit.? No sensory deficit. CN 2-12 intact Course Reevaluation(s) Reevaluation #1: Patient responded well to 1 dose of adenosine. Repeat EKG showing normal sinus rhythm. Patient feeling well. Labs pending. Patient will likely be discharged home with metoprolol 25 mg to be taken once as needed for SVT. Will have her follow-up with PCP and Cardiology she would likely benefit from a Holter monitor or further cardiac evaluation. Time: 15:28 Reevaluation #2: Patient feeling better, heart rate improved and in high 80s low 90s. Patient feeling better. Will discharge her with metoprolol succinate. Will have her follow up with PCP and Cardiology. Time: 16:05 Medications Administered Generic Name Dose Route Start Last Admin Trade Name Freq PRN Reason Stop Dose Admin Sodium Chloride 1,000 mls @ 999 mls/hr 09/30/24 15:30 09/30/24 15:30 Ns IV 09/30/24 16:30 999 mls/hr .Q1H1M JOANNA Administration Discontinued Medications Generic Name Dose Route Start Last Admin Trade Name Freq PRN Reason Stop Dose Admin Adenosine 6 mg 09/30/24 15:08 09/30/24 15:10 Adenosine 6 Mg/2 Ml Vial IVPUSH 09/30/24 15:09 6 mg STAT STA Administration Medical Decision Making Medical Decision Making [facility] Narrative: 54-year-old female presents with rapid heart beat and chest pressure started about an hour ago after she was finished eating. Physical exam rapid regular rhythm noted This is likely SVT less likely atrial fibrillation or atrial flutter. Unlikely ACS, dissection, PE. Immediately upon patient's arrival into the department EKG was done which showed SVT, Valsalva was attempted without success. Adenosine was given 6 mg IV push with success. Patient tolerated procedure well. Nursing staff with code cart at the bedside as well as Dr. Abdalla. Plan- basic labs Differential Diagnosis Differential Diagnoses: The differential diagnosis associated with the presentation includes (This is likely SVT less likely atrial fibrillation or atrial flutter. Unlikely ACS, dissection, PE.) Admission/Observation Consideration of admission/observation: Escalation of care including admission/observation considered Lab Data [facility] Lab Attestation statement: I reviewed the patient's lab results. 09/30/24 15:23 09/30/24 15:23 Labs: Lab Results 09/30/24 Range/Units 15:23 WBC 8.0 (4.8-10.8) X10*3/uL RBC 4.70 (4.20-5.50) X10*6/uL Hgb 13.4 (12.0-16.0) g/dl Hct 42.5 (37.0-47.0) % MCV 90.4 (80.0-98.0) fL MCH 28.5 (27.0-33.0) pg MCHC 31.5 (31.0-35.0) g/dl RDW 12.8 (11.0-16.0) % Plt Count 299 (160-400) X10*3/uL MPV 8.9 L (9.4-12.3) fL Immature Gran % (Auto) 0.3 (0.0-0.4) % Neut % (Auto) 54.8 (45-73) % Lymph % (Auto) 35.8 (20-40) % Pepin % (Auto) 6.4 (2-11) % Eos % (Auto) 2.1 (0-4) % Baso % (Auto) 0.6 (0-2) % Lymph # (Auto) 2.9 (1.2-4.9) X10*3/uL Pepin # (Auto) 0.5 (0.1-1.2) X10*3/uL Eos # (Auto) 0.2 (0.0-0.4) X10*3/uL Baso # (Auto) 0.1 (0.0-0.2) X10*3/uL Abs Immat Gran (auto) 0.02 (0.00-0.03) X10*3/uL Absolute Neuts (auto) 4.4 (2.0-8.3) x10*3/uL Absolute Nucleated RBC 0.000 (0.0-0.012) X10*3/uL Nucleated RBC % (auto) 0.0 (0.0-0.2) /100WBC PT 12.0 (10.9-12.4) SEC INR 1.0 (0.9-1.1) Sodium 143 (135-145) mmol/L Potassium 3.7 (3.3-5.1) mmol/L Chloride 108 (96-108) mmol/L Carbon Dioxide 25 (22-29) mmol/L Anion Gap 14 (12-20) BUN 13 (9-16) mg/dL Creatinine 0.93 (0.5-1.4) mg/dL Estim Creat Clear Calc 99.5 Estimated GFR > 60 Random Glucose 137 H (60-115) mg/dL Calcium 9.2 D (8.4-10.2) mg/dL Magnesium 2.3 (1.6-2.6) mg/dL Total Bilirubin 0.5 (0.0-1.0) mg/dL AST 26 (5-31) U/L Troponin I High Sens < 2.7 (<3.5-17.0) ng/L Total Protein 7.5 (6.5-8.0) g/dL Albumin 3.9 (3.5-5.0) g/dL Independent Interpretation I performed an independent interpretation of an: EKG (svt --> NSR ) Independent Historian Clinical information obtained from an independent historian. History obtained from or confirmed by: Spouse External Record Review External record reviewed: Office record, Outpatient record and Prior outpatient labs Prescription Management I considered prescription management with: Other (Metoprolol 25 mg po PRN once as needed for SVT recommended by Dr Abdalla ) Chronic Conditions Patient?s care impacted by: Hypertension and Other (obesity ) Critical Care Time Critical Care Time Critical Care Time: Yes Total Critical Care Time: 35 Attestation: I attest to this time spent taking care of the patient, obtaining history, physical, reviewing labs, imaging, treatment of patients condition +/- specialist/hospitalist consult Discharge Plan Discharge Clinical Impression: Palpitations, SVT (supraventricular tachycardia) Patient Disposition: Home, Self-Care Instructions: Supraventricular Tachycardia (ED), Heart Palpitations (ED) Additional Instructions: Take your medications as prescribed. If you were prescribed antibiotics today, it is important that you take your medication to their entirety, do not skip any doses, do not finish them early. Follow-up with your primary care provider this week. Return to the emergency department with new or worsening symptoms. Such as fevers, chills, chest pain, shortness of breath, nausea, vomiting, dizziness, headache, vision changes, lethargy In case of emergency call 911 Please follow up with pcp and cardiology Prescriptions: New metoprolol tartrate 25 mg tablet 12.5 mg PO ONCE PRN (Reason: svt) Qty: 14 0RF Rx Instructions: Take PO PRN once for SVT No Action ibuprofen 600 mg tablet 600 mg PO Q6H PRN (Reason: pain) Qty: 30 0RF cyclobenzaprine 10 mg tablet 10 mg PO TID PRN (Reason: muscle spasm) Qty: 14 0RF lidocaine [Lidoderm] 5 % adhesive patch,medicated 1 patch topical DAILY Qty: 30 0RF Rx Instructions: leave on most painful area for up to 12 hrs acetaminophen [Tylenol Extra Strength] 500 mg tablet 500 mg PO Q6H PRN (Reason: pain) Qty: 30 0RF Wegovy 0.25 mg/0.5 mL pen injector 0.25 mg subcut QWEEK 28 Days Qty: 2 0RF Rx Instructions: administer weeks 1 through 4 of therapy diclofenac sodium 75 mg tablet,delayed release (DR/EC) 75 mg PO BID 10 Days Qty: 20 0RF Referrals: [facility] [Provider Group] - 1 day Digna Tilley MD [Primary Care Provider] - 2 days Stand Alone Forms: Work/School Release Print Language: Bulgarian
[2024-09-30 15:26] VITALS: BP 132/85; PULSE 99; RESP 18; TEMP 36.8; O2SAT 94
[2024-09-30 15:26] LABS: MANUAL DIFF FLAG NO
[2024-09-30 15:28] LABS: Basophils Absolute Auto 0.1 X10*3/uL (0.0-0.2); Basophils Percent Auto 0.6 % (0-2); Eosinophils Absolute Auto 0.2 X10*3/uL (0.0-0.4); Eosinophils Percent Auto 2.1 % (0-4); Hematocrit 42.5 % (37.0-47.0); Hemoglobin 13.4 g/dl (12.0-16.0); Imm Gran Abs Auto 0.02 X10*3/uL (0.00-0.03); Imm Gran Pct Auto 0.3 % (0.0-0.4); Lymphocytes Absolute Auto 2.9 X10*3/uL (1.2-4.9); Lymphocytes Percent Auto 35.8 % (20-40); Mean Corpuscular HGB Conc 31.5 g/dl (31.0-35.0); Mean Corpuscular Hemoglobin 28.5 pg (27.0-33.0); Mean Corpuscular Volume 90.4 fL (80.0-98.0); Mean Platelet Volume 8.9 fL (9.4-12.3); Monocytes Absolute Auto 0.5 X10*3/uL (0.1-1.2); Monocytes Percent Auto 6.4 % (2-11); Neutrophils Absolute Auto 4.4 x10*3/uL (2.0-8.3); Neutrophils Percent Auto 54.8 % (45-73); Platelet Count 299 X10*3/uL (160-400); Red Cell Distribution Width 12.8 % (11.0-16.0)
[2024-09-30] MEDS: 0.9 % Sodium Chloride 1,000 ML 999 ML IV (15:30)
[2024-09-30 15:53] LABS: Troponin-I High Sensitivity < 2.7 ng/L (<3.5-17.0)
[2024-09-30 15:54] LABS: Albumin Level 3.9 g/dL (3.5-5.0); Anion Gap 14 (12-20); Aspartate Amino Transferase 26 U/L (5-31); Bilirubin Total 0.5 mg/dL (0.0-1.0); Blood Urea Nitrogen 13 mg/dL (9-16); Calcium 9.2 mg/dL (8.4-10.2); Carbon Dioxide 25 mmol/L (22-29); Chloride 108 mmol/L (96-108); Creatinine Clr Calc Pharmacy 99.5; Estimated Glomerular Filt Rate > 60; Glucose Random 137 mg/dL (60-115); Magnesium 2.3 mg/dL (1.6-2.6); Potassium 3.7 mmol/L (3.3-5.1); Sodium 143 mmol/L (135-145); Total Protein 7.5 g/dL (6.5-8.0)
[2024-09-30 16:16] VITALS: BP 127/87; PULSE 97; RESP 16; TEMP 36.8; O2SAT 97
--- NOTE | 2024-09-30 16:16 | PC.NURSE ---
Patient admitted from home for onset of SVT. Valsava maneuver attempted to get patient out of SVT but unsuccessful. Atropine given as ordered with good effect. Walked to bathroom, gait steady. Denies any pain.
[2024-09-30 16:34] LABS: Appearance Urine Clear; Color Urine Yellow; Glucose Urine UA Negative (Negative); Leukocyte Esterase Urine Negative (Negative); Nitrite Urine Negative (Negative); PH 6.5 (5.0-9.0); Specific Gravity - Urine 1.015 (1.005-1.025); Urine Blood Negative (Negative); Urine Ketones Negative (Negative); Urine Protein Negative (Neg-Trace)
[2024-09-30 16:47] LABS: Alanine Aminotransferase 27 U/L (0-31); Alkaline Phosphatase 60 U/L (39-117)
== END 2024-09-30 16:18 | disposition home or self-care (01) ==
PROVIDERS: Physician Assistant; Emergency Provider Emergency Medicine; PCP Internal Medicine
DX: I47.10 Supraventricular tachycardia, unspecified (principal); R07.89 Other chest pain; R42 Dizziness and giddiness; R00.2 Palpitations; Z79.899 Other long term (current) drug therapy
CPT/HCPCS: 36415; 80053; 81003; 83735; 84484; 85025; 85610; 93005; 93010; 96361; 96374; 96375; 99284; 99285; J0153

== ENCOUNTER → 2024-09-30 15:01 | Outpatient (BNV) | payer OTHER, SELFPAY | PROVIDERS: Emergency Provider Emergency Medicine; PCP Internal Medicine; Visit Provider Internal Medicine | DX: I47.10 Supraventricular tachycardia, unspecified (principal) | CPT/HCPCS: 93010 ==

== ENCOUNTER 2024-11-05 08:33 | Outpatient (AMB) | payer OTHER, SELFPAY ==
--- NOTE | 2024-11-05 08:36 | AM.OFFWIN_ITS ---
Intake Vital Signs 11/05/24 08:38 Weight 266 lb BP 110/78 Blood Pressure Location Lt brachial Position Sitting Pulse 84 Pulse Source Pulse Oximeter Temp 97.8 F Temp Source Oral Pulse Oximetry (%) 98 Oxygen Delivery Method Room Air Intake Visit Reasons: EP body aches, fever, congestion Intake Note: Patient here for fever, body aches, ear pain, sinus congestion and wheezing that has been present for 3 weeks. Patient Tobacco Use Status: Never used Tobacco Allergies No Known Allergies Allergy (Verified 11/05/24 08:38) Do you need a note to return to daycare/school/sports/work: No HPI HPI Comments History of Present Illness Details 54 y/o female patient who presents to [facility] walk in clinic with c/o URI symptoms x 3 weeks. Pt c/o cough, chest tightness and generalized body aches. PFS Medical History SVT (supraventricular tachycardia) Diverticulitis Diverticula, colon Surgical History History of tubal ligation Family History Father No problems noted. Mother No problems noted. Maternal Grandmother No problems noted. Maternal Grandfather No problems noted. Paternal Grandmother Diabetes Paternal Grandfather No problems noted. Social History Housing: House Alcohol intake: never Patient Tobacco Use Status: Never used Tobacco e-Cigarette/Vaping Use: Never Used Second Hand Smoke Exposure: No service: No Current occupational status: employed Current occupational exposures/hazards: No Cognitive needs: No Hearing needs: No Vision needs: Yes Female Reproductive History Menstrual Age of Menarche: 15 Review of Systems Const All systems reviewed & are unremarkable except as noted in HPI and below Physical Exam Vital Signs: Last Vital Signs Temp 97.8 F 11/05/24 08:38 Pulse 84 11/05/24 08:38 BP 110/78 11/05/24 08:38 Pulse Ox 98 11/05/24 08:38 Oxygen Delivery Method Room Air 11/05/24 08:38 Const General: cooperative and no acute distress Nutritional Appearance: obese Orientation/consciousness: patient oriented x3 Resp Effort & Inspection: normal respiratory effort and able to speak in complete sentences Auscultation: clear to auscultation bilaterally, no crackles, no rales, no rhonchi and wheezes Cardio Heart sounds: S1 normal heart sound present and S2 normal heart sound present Neuro General: patient oriented x3 Assessment & Plan Assessment & Plan (1) Cough: Code(s): R05.9 - Cough, unspecified Qualifiers: Cough type: subacute Qualified Code(s): R05.2 - Subacute cough Plan: Ordered Abx OTC cough remedies Rest and hydrate well with warm fluids Medications: New doxycycline hyclate 100 mg PO BID 10 days 20 caps 0RF R05.2 - Subacute cough benzonatate 100 mg PO TID 90 caps 0RF R05.2 - Subacute cough Coding Level of Care Code Est Pt Level 4 (97671) Diagnoses Subacute cough R05.2 Cough type: subacute Time Spent (min) 20
[2024-11-05 08:38] VITALS: BP 110/78; PULSE 84; TEMP 36.6; O2SAT 98
== END 2024-11-05 08:53 | disposition home or self-care (01) ==
PROVIDERS: PCP Internal Medicine; Visit Provider Nurse Practitioner Family
DX: R05.2 Subacute cough (principal)

== ENCOUNTER 2024-11-17 19:13 | Inpatient (IN) | payer OTHER, SELFPAY ==
--- NOTE | ~2024-11-17 | CT_ITS ---
CLINICAL HISTORY: LLQ pain, hx of diverticulitis CT abdomen and pelvis with contrast Comparison: CT/IN - CT ABDOMEN PELVIS W CON - 12/09/20 00:25 EST Findings: Minimal bilateral basilar atelectasis. No consolidation or effusion. The gallbladder is within normal limits. No biliary ductal dilatation. Mild low-attenuation of the liver parenchyma suggestive of steatosis. The spleen, pancreas, adrenal glands and kidneys are unremarkable. No ureteral stones and no hydronephrosis or hydroureter. No bowel obstruction, pneumoperitoneum, or pneumatosis. Colonic diverticulosis with focal wall thickening and pericolonic inflammatory stranding at the junction of the descending and sigmoid colon consistent with acute diverticulitis. No abscess. No free fluid. Pelvic contents unremarkable. Normal appendix. Abdominal aorta normal in size. No acute osseous process. Mild degenerative changes bilateral hips. IMPRESSION: 1. Acute diverticulitis at the junction of the descending and sigmoid colon with no evidence of an abscess. 2. Additional nonacute findings as described. This document has been electronically signed by: Josefa Paez MD on 11/17/2024 21:46:20
--- NOTE | 2024-11-17 19:18 | ED_ITS ---
HPI - Abdominal Pain General Chief Complaint: Abdominal Pain Stated Complaint: severe abd pain Time Seen by Provider: 11/17/24 19:38 History of Present Illness ED Provider: Ed Chase DO HPI narrative: 54-year-old female with past medical history of SVT on metoprolol as needed, ureteral stones and diverticulitis without abdominal surgeries presents to the ED for sudden onset left lower abdominal pain after eating [place] rice and a beef stick shortly prior to arrival. Patient received acetaminophen at home without relief. She states the pain is episodic with no clear mitigating or exacerbating factors. The pain does not radiate to the flank or the groin. She denies urinary urgency, frequency, dysuria or hematuria. She denies fevers or chills and states she was in her normal state of health prior to the pain. She also endorses nausea without vomiting, diarrhea or constipation. She states she has not had any similar symptoms in the past. Denies trauma to the abdomen. Related Data Home Medications ?Medication ?Instructions ?Recorded ?Confirmed metoprolol tartrate 25 mg tablet 12.5 mg PO DAILY PRN svt 11/18/24 11/19/24 [id number] 0.4 mg-calcium 162 1 tab PO DAILY 11/18/24 11/19/24 mg-iron 18 [id number] tablet Previous Rx's ?Medication ?Instructions ?Recorded acetaminophen 500 mg tablet 500 mg PO Q6H PRN pain #30 tabs 09/10/24 (Tylenol Extra Strength) amoxicillin 875 mg-potassium 1 tab PO Q12H #14 tabs 11/18/24 clavulanate 125 mg tablet Allergies Allergy/AdvReac Type Severity Reaction Status Date / Time No Known Allergies Allergy Verified 11/17/24 19:20 Review of Systems Review of Systems Yes all other systems are reviewed and are negative [facility] Past Medical History Medical History SVT (supraventricular tachycardia) Diverticulitis Diverticula, colon Surgical History History of tubal ligation Family History Family History Father No problems noted. Mother No problems noted. Maternal Grandmother No problems noted. Maternal Grandfather No problems noted. Paternal Grandmother Diabetes Paternal Grandfather No problems noted. Social History Social History Household Members: Spouse Housing: House Do you presently have visiting nurse or other home services: No Alcohol intake: never Patient Tobacco Use Status: Never used Tobacco Smoked in Last 30 Days: No e-Cigarette/Vaping Use: Never Used Second Hand Smoke Exposure: No Use of substances other than those prescribed or required for medical reasons: No Have you been hit, kicked, punched, or otherwise hurt by someone within the past year? If so, by whom?: No Do you feel safe in your current relationship?: Yes Is there a partner from a previous relationship who is making you feel unsafe now?: No Are you made to feel afraid or neglected: No Advance Directives: No Advance Directives Information Provided: No Do you have a plan to hurt others: No Plan Recently lost weight without trying: Unsure Eating poorly because of decreased appetite: No Nutrition Risks: No Nutritional Risk Patient : No service: No Current occupational status: employed Current occupational exposures/hazards: No Cognitive needs: No Hearing needs: No Vision needs: Yes Physical Exam ED Vital Signs: Vital Signs - 24 hr 11/17/24 19:19 11/17/24 19:33 Temperature 98.2 F 98 F Pulse Rate 99 76 Respiratory Rate 16 18 Blood Pressure 129/95 H 151/100 H Pulse Oximetry 95 98 Oxygen Delivery Method Room Air Room Air BMI result Body Mass Index 39.5 Constitutional: In acute pain distress.?Alert, oriented, speaking in full sentences HEENT: ?Normocephalic, atraumatic. ?Moist mucous membranes Eyes: ?PERRL, EOMI Neck: ?Supple, nontender Chest: ?No chest wall tenderness Respiratory: ?Lungs clear to auscultation, no increased work of breathing Cardio: ?Regular rate and rhythm, no murmur, 2+ radial and DP pulses symmetrically GI: ?Soft, nondistended, tenderness elicited only in the left lower quadrant. Back: ?Normal range of motion, nontender Skin: ?No rash, no lesions Neuro: ?Alert and oriented to person, place and time, moves all 4 extremities, no focal deficits Extremities: ?No swelling or tenderness, full range of motion Psych: ?Calm, alert and cooperative, appropriate behavior Course Course Course Narrative: This is a Rapid Medical Exam performed in triage by Chantel Valentin PA-C. Full HPI, ROS and PE to be performed by primary ED provider. 54-year-old female past medical history of diverticulitis, obesity, presenting to the ED c/o LLQ abdominal pain x1hr w/assoc nausea. Admits feels like prior diverticulitis. denies V/D, fever, urinary sx PE: uncomfortable, will be brought back to main ED Plan: labs, UA Medical Decision Making Medical Decision Making MDM Narrative: Patient presenting with left lower quadrant abdominal pain and nausea. Differential diagnosis includes diverticulitis flare, early gastroenteritis, other intra-abdominal pathology. She was treated initially with ketorolac and morphine with significant improvement. Patient is pending CT imaging and urinalysis, signed out to the next provider pending these results, re-evaluation, possible treatment and final disposition. 11/17/2024 at 23:10 hours, Dr. Eulogio Nevarez's note: I assumed care of this patient from my colleague, Dr. Ed Chase at 21:00 hours pending the patient's CT scan of the abdomen pelvis with IV contrast. The patient has a history of diverticulitis and presented with sudden onset of left lower quadrant abdominal pain that started earlier today. She states that the pain was 10/10 at its worst. She had associated nausea but no vomiting. She had no fever or chills. The patient was treated with Toradol and morphine IV with the initial improvement of her pain but she states that her pain has increased in his now 8/10. On my examination patient has moderate to severe left mid and lower quadrant tenderness. Patient's laboratory evaluation revealed an elevated glucose of 156, slight elevation in the AST and ALT of 37 and 37. Lipase was normal at 30. CT scan of the abdomen pelvis with IV contrast revealed Colonic diverticulosis with focal wall thickening and pericolonic inflammatory stranding at the junction of the descending and sigmoid colon consistent with acute diverticulitis . Patient also had an incidental finding of steatosis which may explain the slight elevation in her AST and ALT. The patient was having increased pain and I ordered morphine 4 mg IV. She was also ordered to get normal saline 1 L IV at 125 cc/hour. I ordered blood cultures x2 and a lactic acid. The patient will be treated with Zosyn 4.5 g IV. Given the severity of her pain I do not think that the patient can be treated as an outpatient and needs to be admitted for management, IV fluids and IV antibiotics. I did discuss the admission with the covering hospitalist, Admission/Observation Consideration of admission/observation: Escalation of care including admission/observation considered Lab Data MDM Lab Attestation statement: I reviewed the patient's lab results. Labs reviewed and show no leukocytosis or anemia, mild elevation of lymphocytes, grossly unremarkable CMP with mild elevation of AST and ALT 237 each, unremarkable lipase. 11/17/24 19:30 11/17/24 19:30 Labs: Lab Results 11/17/24 11/17/24 Range/Units 19:30 23:24 WBC 9.2 (4.8-10.8) X10*3/uL RBC 4.47 (4.20-5.50) X10*6/uL Hgb 12.9 (12.0-16.0) g/dl Hct 40.3 (37.0-47.0) % MCV 90.2 (80.0-98.0) fL MCH 28.9 (27.0-33.0) pg MCHC 32.0 (31.0-35.0) g/dl RDW 13.1 (11.0-16.0) % Plt Count 282 (160-400) X10*3/uL MPV 9.6 (9.4-12.3) fL Immature Gran % (Auto) 0.2 (0.0-0.4) % Neut % (Auto) 38.6 L (45-73) % Lymph % (Auto) 47.9 H (20-40) % [place] % (Auto) 10.7 (2-11) % Eos % (Auto) 2.2 (0-4) % Baso % (Auto) 0.4 (0-2) % Lymph # (Auto) 4.4 (1.2-4.9) X10*3/uL [place] # (Auto) 1.0 (0.1-1.2) X10*3/uL Eos # (Auto) 0.2 (0.0-0.4) X10*3/uL Baso # (Auto) 0.0 (0.0-0.2) X10*3/uL Abs Immat Gran (auto) 0.02 (0.00-0.03) X10*3/uL Absolute Neuts (auto) 3.5 (2.0-8.3) x10*3/uL Absolute Nucleated RBC 0.000 (0.0-0.012) X10*3/uL Nucleated RBC % (auto) 0.0 (0.0-0.2) /100WBC Sodium 144 (135-145) mmol/L Potassium 4.1 (3.3-5.1) mmol/L Chloride 109 H (96-108) mmol/L Carbon Dioxide 26 (22-29) mmol/L Anion Gap 13 (12-20) BUN 16 (9-16) mg/dL Creatinine 0.75 (0.5-1.4) mg/dL Estim Creat Clear Calc 110.8 Estimated GFR > 60 Random Glucose 156 H (60-115) mg/dL Lactic Acid 2.0 (0.5-2.0) mmol/L Calcium 9.3 (8.4-10.2) mg/dL Magnesium 2.3 (1.6-2.6) mg/dL Total Bilirubin 0.4 (0.0-1.0) mg/dL Direct Bilirubin 0.2 (0.0-0.5) mg/dL AST 37 H (5-31) U/L ALT 37 H (0-31) U/L Alkaline Phosphatase 57 (39-117) U/L Total Protein 7.8 (6.5-8.0) g/dL Albumin 3.9 (3.5-5.0) g/dL Lipase 30 (8-78) U/L Hold Yellow Top See Note Radiology Impression Discussion of test interpretation with radiology: I have reviewed the radiologist's reading. Radiologist Impression: CT abdomen and pelvis with contrast Comparison: CT/ME - CT ABDOMEN PELVIS W CON - 12/09/20 00:25 EST Findings: Minimal bilateral basilar atelectasis. No consolidation or effusion. The gallbladder is within normal limits. No biliary ductal dilatation. Mild low-attenuation of the liver parenchyma suggestive of steatosis. The spleen, pancreas, adrenal glands and kidneys are unremarkable. No ureteral stones and no hydronephrosis or hydroureter. No bowel obstruction, pneumoperitoneum, or pneumatosis. Colonic diverticulosis with focal wall thickening and pericolonic inflammatory stranding at the junction of the descending and sigmoid colon consistent with acute diverticulitis. No abscess. No free fluid. Pelvic contents unremarkable. Normal appendix. Abdominal aorta normal in size. No acute osseous process. Mild degenerative changes bilateral hips. IMPRESSION: 1. Acute diverticulitis at the junction of the descending and sigmoid colon with no evidence of an abscess. 2. Additional nonacute findings as described. This document has been electronically signed by: Josfea Paez MD on 11/17/2024 21:46:20 Dictated By: Josefa Paez MD Medications Administered Discontinued Medications Generic Name Dose Route Start Last Admin Trade Name Freq PRN Reason Stop Dose Admin Enoxaparin Sodium 40 mg 11/18/24 09:00 11/18/24 08:18 Enoxaparin Sodium 40 Mg/0.4 Ml Syringe SUBCUT 40 mg DAILY JOANNA Administration Piperacillin Sod/Tazobactam 100 mls @ 200 mls/hr 11/17/24 23:07 11/18/24 00:31 Sod 4.5 gm/ Sodium Chloride IV 11/17/24 23:36 Infused ONCE ONE Infusion Sodium Chloride 1,000 mls @ 125 mls/hr 11/17/24 23:07 11/18/24 08:07 Ns IV 11/18/24 07:06 Infused .Q8H STA Infusion Piperacillin Sod/Tazobactam 50 mls @ 100 mls/hr 11/18/24 06:00 11/18/24 06:18 Sod 3.375 gm/ Sodium Chloride IV Infused Q6H JOANNA Infusion Iohexol 100 ml 11/17/24 20:39 11/17/24 20:40 Iohexol 350 Mg/Ml 100 Ml Infus..Btl IV 11/17/24 20:40 100 ml ONCE ONE Administration Ketorolac Tromethamine 15 mg 11/17/24 19:53 11/17/24 20:00 Ketorolac Tromethamine 15 Mg/Ml Vial IVPUSH 11/17/24 19:54 15 mg ONCE ONE Administration Morphine Sulfate 4 mg 11/17/24 19:53 11/17/24 20:00 Morphine Sulfate 4 Mg/Ml Cartridge IVPUSH 11/17/24 19:54 4 mg ONCE ONE Administration Protocol Morphine Sulfate 4 mg 11/17/24 22:49 11/17/24 23:26 Morphine Sulfate 4 Mg/Ml Cartridge IVPUSH 11/17/24 22:50 4 mg ONCE STA Administration Protocol Sodium Chloride 3 ml 11/18/24 08:00 11/18/24 08:08 0.9 % Sodium Chloride Flush 3 Ml Syringe IVFLUSH 3 ml QSHIFT [facility] Administration Discharge Plan Discharge Clinical Impression: Acute diverticulitis Abdominal pain Qualifiers: Abdominal location: left lower quadrant Qualified Code(s): R10.32 - Left lower quadrant pain Patient Disposition: Admitted As Inpatient Discharge Date/Time: 11/18/24 09:18
[2024-11-17 19:19] VITALS: BP 129/95; PULSE 99; RESP 16; TEMP 36.8; O2SAT 95; BMI 39.5
[2024-11-17 19:33] VITALS: BP 151/100; PULSE 76; RESP 18; TEMP 36.6; O2SAT 98
[2024-11-17 19:36] LABS: MANUAL DIFF FLAG NO
[2024-11-17 19:50] LABS: Basophils Percent Auto 0.4 % (0-2); Eosinophils Absolute Auto 0.2 X10*3/uL (0.0-0.4); Eosinophils Percent Auto 2.2 % (0-4); Hematocrit 40.3 % (37.0-47.0); Hemoglobin 12.9 g/dl (12.0-16.0); Imm Gran Abs Auto 0.02 X10*3/uL (0.00-0.03); Imm Gran Pct Auto 0.2 % (0.0-0.4); Lymphocytes Absolute Auto 4.4 X10*3/uL (1.2-4.9); Lymphocytes Percent Auto 47.9 % (20-40); Mean Corpuscular Hemoglobin 28.9 pg (27.0-33.0); Mean Corpuscular Volume 90.2 fL (80.0-98.0); Mean Platelet Volume 9.6 fL (9.4-12.3); Monocytes Percent Auto 10.7 % (2-11); Neutrophils Absolute Auto 3.5 x10*3/uL (2.0-8.3); Neutrophils Percent Auto 38.6 % (45-73); Platelet Count 282 X10*3/uL (160-400); Red Blood Count 4.47 X10*6/uL (4.20-5.50); Red Cell Distribution Width 13.1 % (11.0-16.0); White Blood Count 9.2 X10*3/uL (4.8-10.8)
[2024-11-17 20:00] LABS: Alanine Aminotransferase 37 U/L (0-31); Albumin Level 3.9 g/dL (3.5-5.0); Alkaline Phosphatase 57 U/L (39-117); Anion Gap 13 (12-20); Aspartate Amino Transferase 37 U/L (5-31); Bilirubin Direct 0.2 mg/dL (0.0-0.5); Bilirubin Total 0.4 mg/dL (0.0-1.0); Blood Urea Nitrogen 16 mg/dL (9-16); Calcium 9.3 mg/dL (8.4-10.2); Carbon Dioxide 26 mmol/L (22-29); Chloride 109 mmol/L (96-108); Creatinine Clr Calc Pharmacy 110.8; Estimated Glomerular Filt Rate > 60; Glucose Random 156 mg/dL (60-115); Lipase 30 U/L (8-78); Magnesium 2.3 mg/dL (1.6-2.6); Potassium 4.1 mmol/L (3.3-5.1); Sodium 144 mmol/L (135-145); Total Protein 7.8 g/dL (6.5-8.0)
[2024-11-17] MEDS: Ketorolac Tromethamine 15 MG/ML VIAL IVPUSH (20:00)
[2024-11-17] MEDS: Morphine Sulfate 4 MG/ML CARTRIDGE IVPUSH ×2 (20:00→23:26)
[2024-11-17] MEDS: iohexoL 350 MG/ML 100 ML INFUS..BTL IV (20:40)
--- NOTE | 2024-11-17 23:27 | PM.IMHP ---
History of Present Illness Date of Service: 11/17/24 Chief Complaint: Abd pain A 54 years old lady with PMH of Diverticulitis, Obesity, SVT who presents to ER with LLQ pain for 1 day [employer]. The patient reports 10/10, LLQ, non-radiating, no relieving factors, associated with nausea but no vomiting or diarrhea. similar to prev. Diverticulitis event. No chest pain, palpitations, SOB, nausea, vomiting, diarrhea or urinary symptoms. reporting chills but no fever. unable to tolerate PO. In ED found to have mild AST, ALT elevation. CT scan showing acute diverticulitis. started on IVF , pain medications and antibiotics. Admitted for further evaluation and treatment. Review of Systems Review of Systems: No fever, chills or weakness No chest pain, palpitation No shortness of breath or coughing left low abdominal pain, mild nausea no vomiting No urinary symptoms No any rash or wounds ON LICENSE OF [facility] Medical History SVT (supraventricular tachycardia) Diverticulitis Diverticula, colon Family History Father No problems noted. Mother No problems noted. Maternal Grandmother No problems noted. Maternal Grandfather No problems noted. Paternal Grandmother Diabetes Paternal Grandfather No problems noted. Surgical History History of tubal ligation Social History Housing: House Alcohol intake: never Patient Tobacco Use Status: Never used Tobacco Smoked in Last 30 Days: No e-Cigarette/Vaping Use: Never Used Second Hand Smoke Exposure: No Advance Directives: No Advance Directives Information Provided: No Do you have a plan to hurt others: No Plan service: No Current occupational status: employed Current occupational exposures/hazards: No Cognitive needs: No Hearing needs: No Vision needs: Yes Meds Allergies Allergy/AdvReac Type Severity Reaction Status Date / Time No Known Allergies Allergy Verified 11/17/24 19:20 Active Medications: Current Medications Piperacillin Sod/Tazobactam (Sod 4.5 gm/ Sodium Chloride) 100 mls @ 200 mls/hr IV ONCE ONE Stop: 11/17/24 23:36 Sodium Chloride (Ns) 1,000 mls @ 125 mls/hr IV .Q8H STA Stop: 11/18/24 07:06 Physical Exam Vital Signs and Narrative: Vital Signs: Last Vital Signs Temp 98 F 11/17/24 19:33 Pulse 76 11/17/24 19:33 Resp 18 11/17/24 19:33 BP 151/100 H 11/17/24 19:33 Pulse Ox 98 11/17/24 19:33 O2 Del Method Room Air 11/17/24 19:33 BMI result Body Mass Index 39.5 Const: Other: Constitutional : Awake, interactive, not in distress Neck : Normal inspection, Supple Cardiovascular : RRR, no JVP, no lower extremity edema Respiratory : good bilateral air entry, no crackles, wheezes or rhonchi Gastrointestinal: soft, lax, Normal bowel sounds, LLQ tenderness, no surgical signs Skin : Warm, Dry Neurological : Alert & oriented x3, No focal deficit Results Labs 11/17/24 19:30 11/17/24 19:30 Labs: Laboratory Results - last 24 hr 11/17/24 19:30 MCV 90.2 MCH 28.9 MCHC 32.0 RDW 13.1 Plt Count 282 MPV 9.6 Immature Gran % (Auto) 0.2 Neut % (Auto) 38.6 L Lymph % (Auto) 47.9 H [place] % (Auto) 10.7 Eos % (Auto) 2.2 Baso % (Auto) 0.4 Lymph # (Auto) 4.4 [place] # (Auto) 1.0 Eos # (Auto) 0.2 Baso # (Auto) 0.0 Abs Immat Gran (auto) 0.02 Absolute Neuts (auto) 3.5 Absolute Nucleated RBC 0.000 Nucleated RBC % (auto) 0.0 Anion Gap 13 Estim Creat Clear Calc 110.8 Estimated GFR > 60 Random Glucose 156 H Calcium 9.3 Magnesium 2.3 Total Bilirubin 0.4 Direct Bilirubin 0.2 AST 37 H ALT 37 H Alkaline Phosphatase 57 Total Protein 7.8 Albumin 3.9 Lipase 30 Assessment and Plan (1) Acute diverticulitis: Status: Acute (2) Intractable abdominal pain: Status: Acute Plan A 54 years old lady with PMH of Diverticulitis, Obesity, SVT who presents to ER with LLQ pain for 1 day [employer]. Acute diverticulitis with intractable LLQ pain Not septic CT as reported significant pain; start IV morphine PRN IV fluids advance diet as tolerated IV Zosyn outpatient GI eval for colonoscopy Obesity losing weight, advised to continue Hx SVT continue Metoprolol DVT PPx Lovenox The patient will likely need 2 overnight hospital stay for severe pain from diverticulitis on IV fluids and pain medications Quality Stroke Does the patient have a stroke diagnosis?: No VTE Prior VTE?: No VTE Risk Level:: Medical - moderate - high VTE Device Contraindication: Treatment Not Indicated VTE Drug Contraindication: N/A - Med Ordered
[2024-11-17] MEDS: 0.9 % Sodium Chloride 1,000 ML 125 ML IV (23:28)
[2024-11-17] MEDS: Piperacillin Sodium/Tazobactam 4.5 GM in 0.9 % Sodium Chloride 100 ML IV (23:28)
[2024-11-18 00:08] VITALS: BP 139/90; PULSE 70; RESP 18; TEMP 36.6; O2SAT 96
[2024-11-18 00:18] LABS: Appearance Urine Clear; Color Urine Yellow; Glucose Urine UA Negative (Negative); Leukocyte Esterase Urine Negative (Negative); Nitrite Urine Negative (Negative); PH 5.5 (5.0-9.0); Specific Gravity - Urine >= 1.030 (1.005-1.025); Urine Blood Negative (Negative); Urine Ketones Negative (Negative); Urine Protein Negative (Neg-Trace)
--- NOTE | 2024-11-18 02:40 | PC.NURSE ---
pt resting comfortably , reports feeling much better after pain meds, report given to RN @ overflow
[2024-11-18] MEDS: Piperacillin Sodium/Tazobactam 3.375 GM in 0.9 % Sodium Chloride 50 ML IV (05:45)
[2024-11-18 05:48] VITALS: BP 120/68; PULSE 78; RESP 14; TEMP 36.5; O2SAT 96
[2024-11-18] MEDS: 0.9 % Sodium Chloride Flush 3 ML SYRINGE IVFLUSH (08:08)
[2024-11-18] MEDS: Enoxaparin Sodium 40 MG/0.4 ML SYRINGE SUBCUT (08:18)
[2024-11-18 08:34] VITALS: BP 149/87; PULSE 77; RESP 20; TEMP 36.4; O2SAT 94
--- NOTE | 2024-11-18 08:41 | PM.DS ---
DS: Providers Provider Date of Service: 11/18/24 Date of admission: 11/18/24 00:03 Date of discharge: 11/18/24 Primary care physician: Digna Mathur MD DS: Diagnosis Discharge Diagnosis (1) Acute diverticulitis: Status: Acute (2) Intractable abdominal pain: Status: Acute DS: Summary Hospital Course Hospital Course: from initial hpi: 54 years old lady with PMH of Diverticulitis, Obesity, SVT who presents to ER with LLQ pain for 1 day [employer]. The patient reports 10/10, LLQ, non-radiating, no relieving factors, associated with nausea but no vomiting or diarrhea. similar to prev. Diverticulitis event. No chest pain, palpitations, SOB, nausea, vomiting, diarrhea or urinary symptoms. reporting chills but no fever. unable to tolerate PO. In ED found to have mild AST, ALT elevation. CT scan showing acute diverticulitis. started on IVF , pain medications and antibiotics. Admitted for further evaluation and treatment. hospital course: Was admitted for acute diverticulitis and intractable left lower quadrant pain. He was treated with IV Zosyn. Symptoms improved faster than expected and patient will continue rest of treatment at home on p.o. Augmentin for 1 week and follow up with GI as outpatient. For obesity weight loss recommended. For history of SVT we will continue on metoprolol. Time Attestation Discharge Coordination Time (in mins): 34 Quality: Safe Use of Opioids Does Pt have an Active Cancer Diagnosis on the Problem List?: No Quality: Stroke Does the patient have a stroke diagnosis?: No Physical Exam Vital Signs: Vital Signs: Last Vital Signs Temp 97.6 F 11/18/24 08:34 Pulse 77 11/18/24 08:34 Resp 20 11/18/24 08:34 BP 149/87 H 11/18/24 08:34 Pulse Ox 94 11/18/24 08:34 O2 Del Method Room Air 11/18/24 08:34 BMI result Body Mass Index 39.5 General: AO X 3, no acute distress Resp: CTA bilateral, no accessory muscles used CVS: S1,S2,RRR GI: soft, non tender, non distended Neuro: motor grossly intact, alert Psych: appropriate affect, appropriate insight DS: Data Data Completed and Pending Labs on day of discharge: Laboratory Results - last 24 hr 11/17/24 11/17/24 11/18/24 19:30 23:24 00:10 WBC 9.2 RBC 4.47 Hgb 12.9 Hct 40.3 MCV 90.2 MCH 28.9 MCHC 32.0 RDW 13.1 Plt Count 282 MPV 9.6 Immature Gran % (Auto) 0.2 Neut % (Auto) 38.6 L Lymph % (Auto) 47.9 H [place] % (Auto) 10.7 Eos % (Auto) 2.2 Baso % (Auto) 0.4 Lymph # (Auto) 4.4 [place] # (Auto) 1.0 Eos # (Auto) 0.2 Baso # (Auto) 0.0 Abs Immat Gran (auto) 0.02 Absolute Neuts (auto) 3.5 Absolute Nucleated RBC 0.000 Nucleated RBC % (auto) 0.0 Sodium 144 Potassium 4.1 Chloride 109 H Carbon Dioxide 26 Anion Gap 13 BUN 16 Creatinine 0.75 Estim Creat Clear Calc 110.8 Estimated GFR > 60 Random Glucose 156 H Lactic Acid 2.0 Calcium 9.3 Magnesium 2.3 Total Bilirubin 0.4 Direct Bilirubin 0.2 AST 37 H ALT 37 H Alkaline Phosphatase 57 Total Protein 7.8 Albumin 3.9 Lipase 30 Hold Yellow Top See Note Urine Color Yellow Urine Appearance Clear Urine pH 5.5 Ur Specific [place] >= 1.030 H Urine Protein Negative Urine Glucose (UA) Negative Urine Ketones Negative Urine Blood Negative Urine Nitrite Negative Ur Leukocyte Esterase Negative Discharge Plan Discharge Anticipated Discharge Date/Time: 11/18/24 08:39 Patient Disposition: Home, Self-Care Discharge Diagnosis: diverticulitis Referrals: Digna Tilley MD [Primary Care Provider] - 1 Week Angelic Urias MD [Physician] - 1 Week (diverticulitis) Discharge Medications: New amoxicillin-pot clavulanate 875-125 mg tablet 1 tab PO Q12H Qty: 14 0RF Continued ibuprofen 600 mg tablet 600 mg PO Q6H PRN (Reason: pain) Qty: 30 0RF cyclobenzaprine 10 mg tablet 10 mg PO TID PRN (Reason: muscle spasm) Qty: 14 0RF lidocaine [Lidoderm] 5 % adhesive patch,medicated 1 patch topical DAILY Qty: 30 0RF Rx Instructions: leave on most painful area for up to 12 hrs acetaminophen [Tylenol Extra Strength] 500 mg tablet 500 mg PO Q6H PRN (Reason: pain) Qty: 30 0RF metoprolol tartrate 25 mg tablet 12.5 mg PO ONCE PRN (Reason: svt) Qty: 14 0RF Rx Instructions: Take PO PRN once for SVT diclofenac sodium 75 mg tablet,delayed release (DR/EC) 75 mg PO BID 10 Days Qty: 20 0RF benzonatate 100 mg capsule 100 mg PO TID Qty: 90 0RF Discontinued doxycycline hyclate 100 mg capsule 100 mg PO BID 10 Days Qty: 20 0RF Discharge Orders: Discharge Order (Routine); Ordered 11/18/24 Ordered By: Carlos Pandey Diet: Advance to usual diet Activity on Discharge: As tolerated Stand Alone Forms: Patient Portal Discharge page Print Language: Kyr[place]z Care Plan Goals: recovery Health Concerns: diverticultiis Plan of Treatment: 7 days augmentin, follow up with gi Assessment: see above
--- NOTE | 2024-11-18 09:05 | PHA.MEDREC ---
Pharmacy Consult ? Medication Reconciliation Pharmacy has completed the medication reconciliation. SPOKE WITH PATIENT IN OVERFLOW
== END 2024-11-18 09:18 | disposition home or self-care (01) | DRG 392 ==
LOC: HO.ED 23:21 → HO.EDOVER 11-18 00:09
PROVIDERS: Physician Assistant; Admitting Provider Student in an Organized Health Care Education/Training Program; Emergency Provider Emergency Medicine Emergency Medical Services; PCP Internal Medicine; Visit Provider Internal Medicine
DX: K57.32 Diverticulitis of large intestine without perforation or abscess without bleeding (principal); I47.10 Supraventricular tachycardia, unspecified; E66.9 Obesity, unspecified; Z68.38 Body mass index [BMI] 38.0-38.9, adult; Z79.899 Other long term (current) drug therapy
CPT/HCPCS: 36415; 74177; 80048; 80076; 81003; 83605; 83690; 83735; 85025; 87040; 99221; 99285; J1650; J1885; J2270; J2543; Q9967

== ENCOUNTER → 2024-11-17 19:43 | Outpatient (BNV) | payer OTHER, SELFPAY | PROVIDERS: Emergency Provider Emergency Medicine Emergency Medical Services; PCP Internal Medicine; Visit Provider Student in an Organized Health Care Education/Training Program | DX: K57.92 Diverticulitis of intestine, part unspecified, without perforation or abscess without bleeding (principal); R10.9 Unspecified abdominal pain | CPT/HCPCS: 99223; 99239 ==

== ENCOUNTER → 2024-11-17 19:53 | Outpatient (BNV) | payer OTHER, SELFPAY | PROVIDERS: Emergency Provider Emergency Medicine Emergency Medical Services; PCP Internal Medicine; Visit Provider Specialist | DX: K57.32 Diverticulitis of large intestine without perforation or abscess without bleeding (principal) | CPT/HCPCS: 74177 ==

== ENCOUNTER 2024-11-26 14:14 | Outpatient (AMB) | payer OTHER, SELFPAY ==
[2024-11-26 14:38] VITALS: BP 114/76; BMI 43.5
--- NOTE | 2024-11-26 14:38 | MHC.OFFVIS ---
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 She was seen in 2021 for same symptoms of CP and SVT. She had another episode in between and in Sep 2024 she came to ER with CP and SVT. No other complaints. [facility] Medical History (Updated 11/26/24 @ 15:08 by Sukhwinder Vega MD) SVT (supraventricular tachycardia) Diverticulitis Diverticula, colon Surgical History History of tubal ligation Family History Father No problems noted. Mother No problems noted. Maternal Grandmother No problems noted. Maternal Grandfather No problems noted. Paternal Grandmother Diabetes Paternal Grandfather No problems noted. Social History Household Members: Spouse Housing: House Do you presently have visiting nurse or other home services: No Alcohol intake: never Patient Tobacco Use Status: Never used Tobacco e-Cigarette/Vaping Use: Never Used Second Hand Smoke Exposure: No service: No Current occupational status: employed Current occupational exposures/hazards: No Cognitive needs: No Hearing needs: No Vision needs: Yes Female Reproductive History Menstrual Age of Menarche: 15 Review of Systems Const Denies chills, Denies fatigue, Denies fever(s), Denies weight gain and Denies weight loss ENT Denies dizziness Card Denies chest pain, Denies leg edema, Denies lightheadedness, Denies palpitations, Denies dyspnea on exertion, Denies orthopnea and Denies other Resp Denies cough and Denies dyspnea on exertion GI Denies hematochezia and Denies change in stool character Musc Denies abnormal gait, Denies muscle weakness, Denies numbness, Denies radiating pain into limb and Denies tingling Neuro Denies abnormal gait, Denies dizziness, Denies numbness and Denies tingling Endo Denies fatigue and Denies palpitations Physical Exam Vital Signs: Last Vital Signs BP 114/76 11/26/24 14:38 BMI result Body Mass Index 43.5 GENERAL APPEARANCE: in no acute distress, pleasant. NECK: no carotid bruit, no jugular venous distention. SKIN: no suspicious lesions, warm and dry. HEART: no murmurs, regular rate and rhythm. LUNGS: clear to auscultation bilaterally. ABDOMEN: soft, nontender. EXTREMITIES: no edema. PERIPHERAL PULSES: equal. NEUROLOGIC: No gross deficits, AAO X 3 Office Procedures EKG Details: Sinus rhythm 87 beats per minute, normal ECG, QTC 450 milliseconds. 77314-Ytzoymsxlupbqraws, Complete Assessment & Plan Assessment & Plan (1) SVT (supraventricular tachycardia): Code(s): I47.1 - Supraventricular tachycardia Category: Medical Plan 54 female with SVT. She has infrequent symptoms.. We discussed about vagal maneuvers, meds and ablation. I have advised her to consider ablation. She will think about it. We will see her back in f/u. Coding Level of Care Code Est Pt Level 4 (33161) Diagnoses SVT (supraventricular tachycardia) I47.1 CPT Codes EKG - CPT: 77401-Owvvjrxjekistrbdz, Complete ([id number])
== END 2024-11-26 15:13 | disposition home or self-care (01) ==
PROVIDERS: PCP Internal Medicine; Visit Provider Internal Medicine Cardiovascular Disease
DX: I47.10 Supraventricular tachycardia, unspecified (principal)
CPT/HCPCS: 93010; 99214

== ENCOUNTER → 2024-11-26 14:14 | Outpatient (BNVA) | payer OTHER, SELFPAY | PROVIDERS: PCP Internal Medicine; Visit Provider Internal Medicine Cardiovascular Disease | DX: I47.10 Supraventricular tachycardia, unspecified (principal) | CPT/HCPCS: 93005 ==

== ENCOUNTER 2025-01-16 16:26 | Outpatient (AMB) | payer OTHER, SELFPAY ==
--- NOTE | 2025-01-16 17:21 | MHC.PC.OV ---
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 Accompanied by: Self / Same As Patient Allergies No Known Allergies Allergy (Verified 01/16/25 17:45) Medication List - Last Reconciled 01/16/25 by Digna Mathur MD metoprolol tartrate 12.5 mg PO DAILY PRN Tobacco use date assessed: 01/16/25 Dental Screening Dental Screen Date: 01/16/25 Did you have a dental visit in the last 12 months?: No Did you have a dental problem in the last 6 months where you did not have access to dental care?: No Was dental information given to patient?: Patient has dentist HPI HPI Comments History of Present Illness Details The patient is a 54-year-old female presenting with issues related to weight management in the context of morbid obesity and her existing supraventricular tachycardia medication regimen. She is on metoprolol which effectively manages her cardiac condition with no new cardiac symptoms reported. In terms of weight management, she reports challenges with adhering to dietary recommendations due to financial constraints. No new symptoms of depression or anxiety are evident, though she has a history of treatment for these conditions. The trial of a costly weight management medication was unsustainable causing her to seek alternative options. [facility] Medical History SVT (supraventricular tachycardia) Diverticulitis Diverticula, colon Surgical History History of tubal ligation Family History Father No problems noted. Mother No problems noted. Maternal Grandmother No problems noted. Maternal Grandfather No problems noted. Paternal Grandmother Diabetes Paternal Grandfather No problems noted. Social History Household Members: Spouse Housing: House Do you presently have visiting nurse or other home services: No Alcohol intake: never Patient Tobacco Use Status: Never used Tobacco e-Cigarette/Vaping Use: Never Used Second Hand Smoke Exposure: No service: No Current occupational status: employed Current occupational exposures/hazards: No Cognitive needs: No Hearing needs: No Vision needs: Yes Female Reproductive History Menstrual Age of Menarche: 15 Questionnaire PHQ-9 Over the last 2 weeks, how often have you been bothered by any of the following problems? 1. Little interest or pleasure in doing things: not at all 2. Feeling down, depressed, or hopeless: not at all 3. Trouble falling or staying asleep, or sleeping too much: not at all 4. Feeling tired or having little energy: not at all 5. Poor appetite or overeating: not at all 6. Feeling bad about yourself - or that you are a failure or have let yourself or your family down: not at all 7. Trouble concentrating on things, such as reading the newspaper or watching television: not at all 8. Moving or speaking so slowly that other people could have noticed. Or the opposite - being so fidgety or restless that you have been moving around a lot more than usual: not at all 9. Thoughts that you would be better off or of hurting yourself in some way: not at all Total score: 0 Depression Screening Interpretation: Negative Depression Screening Done: Yes 39659 - PHQ-9 Billing: Yes Source: Developed by Drs. Luis Roe, Luann Real, Juni Gonzalez and colleagues, with an educational katheryn from [employer]. Thrive Questionnaire Date Thrive assessed: 01/16/25 I am a: Patient What is your living situation today?: I have a steady place to live Within the past 12 months, did the food you bought not last and you didn't have the money to get more?: Never true Within the past 12 months, did you worry whether your food would run out before you got money to buy more?: Never true Do you have trouble paying for medicines?: No Do you have trouble getting transportation to medical appointments?: No Do you have trouble paying your heating and electricity bill?: No Do you have trouble taking care of your child, family member or friend?: No Do you have trouble with day-to-day activities such as bathing, preparing meals, shopping, managing finances, etc.?: No Are you currently unemployed and looking for a job?: No Are you interested in more education?: No Please select the resources that you would like help with: None Currently or been in a relationship where the following occur: No concerns reported THRIVE Score: 0 AUDIT C Alcohol Use Questionnaire (AUDIT-C) 1. How often do you have a drink containing alcohol?: Never Total Score: 0 Score Reviewed/Action Taken: No KENNY-7 AMB Questionnaire KENNY-7 Date KENNY - 7 assessed: 01/16/25 Feeling nervous, anxious, or on edge: 0 = Not at all Not being able to stop or control worryin = Not at all Worrying too much about different things: 0 = Not at all Trouble relaxin = Not at all Being so restless that it is hard to sit still: 0 = Not at all Becoming easily annoyed or irritable: 0 = Not at all Feeling afraid as if something awful might happen: 0 = Not at all Total KENNY-7 score (0-4 normal; 5-9 mild; 10-14 moderate; 15-21 severe): 0 Source: Developed by Drs. Luis Roe, Luann Real, Juni Gonzalez and colleagues, with an educational katheryn from [employer]. KENNY-7 Assessment Billing KENNY-7 Assessment Tool: KENNY-7 Assessment 45737 Review of Systems Const All systems reviewed & are unremarkable except as noted in HPI and below Card Denies chest pain at rest, Denies chest pain with activity, Denies edema, Denies irregular heart rhythm, Denies claudication, Denies dyspnea, Denies dyspnea on exertion, Denies orthopnea, Denies paroxysmal nocturnal dyspnea and Denies slow heart rate Resp Denies cough, Denies dyspnea and Denies dyspnea on exertion Neuro Denies lack of coordination Physical exam (Primary Care) Vital Signs: Last Vital Signs BP 122/80 01/16/25 17:23 BMI result Body Mass Index 43.3 BMI Assessment/Plan discussion: High BMI High, discussed plan: lifestyle, weight reduction, dietary and physical activity Tobacco/Smoking Status: Tobacco use Status Tobacco use date assessed 01/16/25 01/16/25 17:28 Patient Tobacco Use Status Never used Tobacco 01/16/25 17:28 e-Cigarette/Vaping Use Never Used 01/16/25 17:28 PHQ-9: PHQ-9 Score PHQ-9: Total score 0 01/16/25 17:46 Depression Screening Interpretation: Negative Thrive Assessment: Date of Thrive Assessment Date Thrive assessed 01/16/25 01/16/25 17:28 Currently or been in a relationship where the following occur: No concerns reported Resp Effort & Inspection: normal respiratory effort Auscultation: clear to auscultation bilaterally Cardio Jugular venous distension: no JVD Rate: regular rate Rhythm: regular rhythm Heart sounds: S1 normal heart sound present and S2 normal heart sound present Extrem General: Yes full ROM Coding Level of Care Code Est Pt Level 3 (84488) Complex EM visit Add On G2211 Diagnoses SVT (supraventricular tachycardia) I47.1 Morbid obesity E66.01 Additional Codes KENNY-7 Assessment Billing - KENNY-7 Assessment Tool: KENNY-7 Assessment 61309 ([id number]) PHQ-9 - 51696 - PHQ-9 Billing: Yes ([id number]) Time Spent (min) 19 Assessment & Plan Assessment & Plan (1) SVT (supraventricular tachycardia): Code(s): I47.1 - Supraventricular tachycardia Category: Medical (2) Morbid obesity: Code(s): E66.01 - Morbid (severe) obesity due to excess calories Category: Medical Plan To address the patient?s morbid obesity, we will incorporate a medication-based approach using bupropion and naltrexone, which may assist in appetite control and weight loss. Vigorous monitoring is pivotal, including weekly weight checks, and ensuring no opioids are consumed to avoid drug interactions. This plan, aligning with her existing supraventricular tachycardia management, also considers non-opioid analgesic options and self-monitoring to guide intervention efficacy over the following months. Patient was informed and verbally consented to the use of an ambient scribe for clinic note documentation during this visit. I discussed with the patient the proposed addition of bupropion with naltrexone for weight management, noting affordability compared to previous options. I elaborated on the risks and benefits, addressing concerns around medication interactions with her existing cardiac treatment. We covered the necessity of avoiding opioids and advised regular weight monitoring at home. I ensured she understood potential medication side effects such as palpitations and restricted her analgesic use to Tylenol and Advil only. Consent was provided for this management approach, with the understanding of regular follow-up in June correlated with upcoming laboratory tests. Orders: Orders Vitamin D 25-OH Total 5 Months E55.9 - Vitamin D deficiency, unspecified Lipid Panel 5 Months E78.5 - Hyperlipidemia, unspecified Comprehensive [place]ia. Panel Fast 5 Months I47.1 - Supraventricular tachycardia Medications: New naltrexone 50 mg PO DAILY 90 tabs 0RF 90 days bupropion HCl XL 150 mg PO QAM 90 tabs 0RF 90 days Patient Instructions: - Begin the bupropion with naltrexone medication regimen as prescribed. - Purchase a household scale and perform weekly weight checks. - Avoid all opioid pain medications; use only Tylenol or Advil for pain relief. - Follow up with laboratory tests in June as part of routine physical. - Monitor for any side effects, particularly palpitations, and seek medical advice if they occur. - Stay committed to the current plan; revisit if inefficacious or intolerable. - Attend follow-up appointments to assess progress and make necessary adjustments.
[2025-01-16 17:23] VITALS: BP 122/80; BMI 43.3
--- OUTSIDE RECORDS SUMMARY | 2025-01-16 18:05 | XMS_ITS | Data Portability ---
Author Organization [facility] Address [address] [place] [address] Care Team Providers Care Medical Transcriber Name Role Phone JULIA ANDERSON Primary Care Provider Assessment No assessment recorded. Plan of Treatment Reminders Order Date Submit Date Provider Last Modified By Organization Details Last Modified Time Details Appointments None recorded. Lab urinalysis , dipstick 2022 023 [email or web address] [email or web address] _alie [facility], [address] [place] [address], [id number], 19:17:14 Referral None recorded. Procedures None recorded. Surgeries None recorded. Imaging None recorded. Medication Orders Augmentin 875 mg-125 mg tablet 2022 023 [facility] #[id number], [address] [place], [address], 3 19:17:16 Patient TargetsNo targets recorded. Patient Instructions Encounter Date Encounter Id Patient Instructions Last Modified By Organization Details Last Modified Time 10/28/2022 [id number] diverticulitis: care instructions [email or web address] Not available 10/28/2022 19:17:14 learning about diverticulosis and diverticulitis [email or web address] Not available 10/28/2022 19:17:14 Reason for Referral None Reported. Results Created Date Observation Date Name Description Value Unit Range Abnormal Flag Note LastModifiedBy Organization Detail LastModifiedTime 10/28/19 23 10/28/2022 urina lysis , dipst ick Unknown Analyte Normal = light yellow Not Available _[facility], [place], [address], 10/28/2022 18:44:50 10/28/1910/28/2022 urina lysis , dipst ick Unknown Analyte Normal = clear Not Available [facility], [place], [address], 10/28/2022 18:44:50 10/28/19 23 10/28/2022 urina lysis , dipst ick Unknown Analyte Normal = negati ve Not Available [facility], [place], [address], 10/28/2022 18:44:50 10/28/19 23 10/28/2022 urina lysis , dipst ick Unknown Analyte Normal = Negati ve Not Available [facility], [place], [address], 10/28/2022 18:44:50 10/28/19 23 10/28/2022 urina lysis , dipst ick Unknown Analyte Normal = Negati ve Not Available [facility], [place], [address], 10/28/2022 18:44:50 10/28/19 23 10/28/2022 urina lysis , dipst ick Unknown Analyte Normal = 1.010, 1.015, 1.020 Not Available [facility], [place], [address], 10/28/2022 18:44:50 10/28/1910/28/2022 urina lysis , dipst ick Unknown Analyte Normal = Negati ve Not Available [facility] [address] [place] [address], [place], [address], 10/28/2022 18:44:50 0110/28/2022 urina lysis , dipst ick Unknown Analyte Normal = 6.5, 7.0, 7.5, 8.0 Not Available 2099luis armando [facility] [address], [place], [address], 10/28/2022 18:44:50 10/28/19 23 10/28/2022 urina lysis , dipst ick Unknown Analyte Normal = Negati ve Not Available 2099luis armando [address], [place], [address], 10/28/2022 18:44:50 10/28/19 23 10/28/2022 urina lysis , dipst ick Unknown Analyte Normal = 0.2, 1.0 Not Available 2099luis armando [address], [place], [place], [address], 10/28/2022 18:44:50 10/28/19 23 10/28/2022 urina lysis , dipst ick Unknown Analyte Normal = Negati ve Not Available luis armando [address], [place], [place], [address], 10/28/2022 18:44:50 10/28/19 23 10/28/2022 urina lysis , dipst ick Unknown Analyte Normal = Negati ve Not Available [facility] [address], [place], [place], [address], 10/28/2022 18:44:50 10/28/19 23 10/28/2022 urina lysis , dipst ick Unknown Analyte Stefanie Not Available [address] [place] [address], [place], [address], 10/28/2022 18:44:50 10/28/19 23 10/28/2022 urina lysis , dipst ick Unknown Analyte Clear Not Available [address] [place] [address], [place], [address], 10/28/2022 18:44:50 10/28/19 23 10/28/2022 urina lysis , dipst ick Unknown Analyte Negati ve Not Available luis armando [facility] [address], [place], [address], 10/28/2022 18:44:50 10/28/19 23 10/28/2022 urina lysis , dipst ick Unknown Analyte Small Not Available alie [address], [place], [address], 10/28/2022 18:44:50 10/28/19 23 10/28/2022 urina lysis , dipst ick Unknown Analyte Negati ve Not Available luis armando hinton [address], [place], [address], 10/28/2022 18:44:50 10/28/19 23 10/28/2022 urina lysis , dipst ick Unknown Analyte 1.030 Not Available alie [address], [place], [address], 10/28/2022 18:44:50 10/28/19 23 10/28/2022 urina lysis , dipst ick Unknown Analyte Trace- intact Not Available luis armando hinton [address], [place], [address], 10/28/2022 18:44:50 10/28/19 23 10/28/2022 urina lysis , dipst ick Unknown Analyte 5.5 Not Available alie [address], [place], [place], [address], 10/28/2022 18:44:50 10/28/19 23 10/28/2022 urina lysis , dipst ick Unknown Analyte Negati ve Not Available [facility] [address] [place], [address], 10/28/2022 18:44:50 10/28/1910/28/2022 urina lysis , dipst ick Unknown Analyte 0.2 E.U./d L Not Available 2099luis armando hinton [address], [place], [address], 10/28/2022 18:44:50 10/28/1910/28/2022 urina lysis , dipst ick Unknown Analyte Negati ve Not Available 2099luis armando hinton [address], [place], [address], 10/28/2022 18:44:50 10/28/1910/28/2022 urina lysis , dipst ick Unknown Analyte Negati ve Not Available 20[address]luis armando [facility] [address] [place], [address], 10/28/2022 18:44:50 Result Notes None recorded. Problems Name Problem SNOMED Code Status Onset Date Resolution Date Notes Provider Name and Address Organization Details Recorded Time Hypertensiv e disorder 99965412 Active 2022 REGINA oscar PA - [facility] 3 18:40:33 Diverticuli tis 473000785 Completed 202210/28/2022 REGINA oscar PA - [facility] 3 18:40:46 Problem Notes None recorded. Procedures Surgical History Date Name Laterality Status Provider Name and Address Organization Details Recorded Time ligation of bilateral fallopian tubes completed REGINA ZAVALA PA - [facility] 10/28/2022 18:41:47 Imaging Results None recorded. Procedure Notes None recorded. Medical Equipment None Reported. Allergies No known drug allergies Medications Name Sig Start Date Stop Date Status Note LastModified by Organization Details LastModified Time Augmentin 875 mg-125 mg tablet Take 1 tablet every 12 hours by oral route for 10 days. 2022 active Not Available Not Available Not Avai lable sulfamethoxaz ole 800 mg-trimethopr im 160 mg tablet TAKE 1 TABLET BY MOUTH TWICE A DAY FOR 7 DAYS 10/28 completed Not Available Not Available Not Available metoprolol succinate ER 25 mg tablet,extend ed release 24 hr TAKE 1 TABLET BY MOUTH EVERY DAY active Not Available Not Available No t Available Mucus Relief ER 600 mg tablet, extended release TAKE 1 TABLET BY MOUTH TWICE A DAY FOR 5 DAYS 10/28 completed Not Available Not Available Not Available Vitals Date Recorded Body height Body mass index (BMI) Body weight Oxygen saturation Oxygen saturation in Arterial blood by Pulse oximetry Heart rate Respiratory rate Body temperature Systolic blood pressure Diastolic blood pressure Provider Name and Address Organization Details Last Updated DateTime 165.1 cm 40.8 kg/m2 306942. 13 g 97 % 97 % 92 /min 16 /min 98.8 [degF] 129 mm[Hg] 91 mm[Hg] REGINA LUNDBERGTEAU [facility] 18:43:41 Social History Question Answer Notes LastModified by [employer] Details LastModified Time Tobacco Smoking Status Never Smoker REGINA ZAVALA [place], [facility] 10/28/2022 18:41:07 What Is Your Level Of Alcohol Consumption? None Information not available 10/28/2022 Are You Currently Employed? Yes Information not available 10/28/2022 Do You Use Any Illicit Or Recreational Drugs? No Information not available 10/28/2022 Have You Recently Traveled Abroad? No Information not available 10/28/2022 Do You Or Have You Ever Used Any Other Forms Of Tobacco Or Nicotine? No Information not available 10/28/2022 Sex: Unknown Functional Status None recorded. Mental Status None recorded. Family History Relationship Description Onset Age of this Age Resolved Age Notes LastModified by Organization Details LastModified Time Father No current problems or disability Not available 10/28 18:40:59 Mother No current problems or disability Not available 10/28 18:40:59 Medical History No medical history recorded. Gynecological HistoryNo gynecological history recorded. Obstetrics History GPAL:G 0 P 0 0 0 0 Past Encounters Encounter ID Performer Location Encounter Start Date Encounter Closed Date Diagnosis/Indication Diagnosis SNOMED-CT Code Diagnosis ICD10 Code Diagnosis Note [id number] [address] [facility] [address] 01/25/2022 08:16:24 01/25/2022 09:13:00 [id number] JW REYNA [facility] [address] [place] [address] 10/28/2022 18:33:30 10/28/2022 19:19:46 Left lower quadrant pain 112640517 R10.32 Please avoid solid foods for the few days as you heal. If you spike fevers or symptoms worsen despite being on treatment please proceed to ER promptly. Otherwise, follow up with your primary care provider in the next 1-2 weeks. Health Concerns Section Related Observation LastModified by Organization Detai ls LastModified Time None Recorded Concern Status LastModified by Organization Details LastModified Time None Recorded Advance Directives Directive None Recorded Payers Encounter Date Sequence Insurance Name Policy Number Policy Hernandez Covered Member ID Hernandez Member ID Guarantor Name 01/25/2022 1 [facility] [id number] Agata Contiz [id number] Agata Parks 10/28/2022 1 [facility] [id number] Agata Contiz [id number] Agata Parks Notes Date Note Type Note Provider Name and Address Organization Details Recorded Time 10/28/2022 text/html Agata is a 52 yo F here for possible diverticulitis flare up. Symptoms feel similar to prior episodes. LLQ pain started yesterday with a fever hurts to walk with some nausea. Hasn't had a diverticulitis flare up in over a year. normal BM's. + fever of 100.7F temp last night. No fever here today, not on any medications. No n/v/d, consiptation, bloody stools. JW LOWRY [address] [place], [address], [place] - [facility] 10/28/2022 19:18:20 OBGyn Episode No OBEpisode recorded.
== END 2025-01-16 17:48 | disposition home or self-care (01) ==
LOC: HO.HMCH 16:27
PROVIDERS: PCP Internal Medicine; Visit Provider Internal Medicine
DX: I47.10 Supraventricular tachycardia, unspecified (principal); E66.01 Morbid (severe) obesity due to excess calories; Z68.41 Body mass index [BMI] 40.0-44.9, adult

== ENCOUNTER → 2025-01-16 16:26 | Outpatient (BNVA) | payer OTHER, SELFPAY | PROVIDERS: PCP Internal Medicine; Visit Provider Internal Medicine | DX: E66.01 Morbid (severe) obesity due to excess calories (principal); Z68.41 Body mass index [BMI] 40.0-44.9, adult; I47.10 Supraventricular tachycardia, unspecified | CPT/HCPCS: 96127 ==

== ENCOUNTER 2025-04-05 11:12 | Outpatient (AMB) | payer OTHER, SELFPAY ==
[2025-04-05 11:23] VITALS: BP 124/68; PULSE 82; TEMP 36.7; O2SAT 98; BMI 41.9
--- NOTE | 2025-04-05 11:23 | AM.OFFWIN_ITS ---
Intake Vital Signs 04/05/25 11:23 Height 5 ft 6 in Weight 259 lb 6 oz BMI 41.9 BP 124/68 Blood Pressure Location Lt brachial Position Sitting Pulse 82 Pulse Source Pulse Oximeter Temp 98.1 F Temp Source Oral Pulse Oximetry (%) 98 Oxygen Delivery Method Room Air Intake Visit Reasons: EP-lt side neck stiffness/swollen Intake Note: Patient present with left neck pain swelling and stiffness times 2 days Patient Tobacco Use Status: Never used Tobacco Allergies No Known Allergies Allergy (Verified 04/05/25 11:29) Do you need a note to return to daycare/school/sports/work: No HPI HPI Comments History of Present Illness Details History of Present Illness - The patient is a 54-year-old female pr esenting with neck pain. - The neck pain began on Tuesday, loca lized to left side, and is severe, especially with movement and even swallowing, sneezing, or coughing. - No numbness or radiating pain to the a jaguar, upper back, or chest is reported. - The patient reports a headache due to pressure, likely associated with the neck pain. - Recent lifting of boxes at work may smith ve contributed to the symptoms. - She has not taken anything for the alon n. - She denies fall or trauma. She denies upper or lower back pain, shoulder pain, arm pain, numbness, or tingling. Physical Exam General: Cooperative, healthy appearing, comfortable, no acute distress and well developed Orientation: Patient oriented x3 Limitations: No limitations Head: Normal to inspection Neck: Normal visual inspection and decrease ROM to the left. Tenderness to palpation of the left lateral neck and SCM. No TTP of the trapezius. Respiratory: Normal respiratory effort and able to speak in complete sentences. Clear to auscultation bilaterally Cardiovascular: Regular rate and rhythm. Normal S1 and S2 Skin: No rashes or lesions noted. Neuro: Sensation is intact on the UE bilaterally. 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 FROM of the left shoulder. Patient was informed and verbally consented to the use of an ambient scribe for clinic note documentation during this visit. [facility] Medical History SVT (supraventricular tachycardia) Diverticulitis Diverticula, colon Surgical History History of tubal ligation Family History Father No problems noted. Mother No problems noted. Maternal Grandmother No problems noted. Maternal Grandfather No problems noted. Paternal Grandmother Diabetes Paternal Grandfather No problems noted. Social History Household Members: Spouse Housing: House Do you presently have visiting nurse or other home services: No Alcohol intake: never Patient Tobacco Use Status: Never used Tobacco e-Cigarette/Vaping Use: Never Used Second Hand Smoke Exposure: No service: No Current occupational status: employed Current occupational exposures/hazards: No Cognitive needs: No Hearing needs: No Vision needs: Yes Female Reproductive History Menstrual Age of Menarche: 15 Review of Systems Const All systems reviewed & are unremarkable except as noted in HPI and below Physical Exam Vital Signs: Last Vital Signs Temp 98.1 F 04/05/25 11:23 Pulse 82 04/05/25 11:23 BP 124/68 04/05/25 11:23 Pulse Ox 98 04/05/25 11:23 Oxygen Delivery Method Room Air 04/05/25 11:23 BMI result Body Mass Index 41.9 Office Meds ketorolac 30 mg/mL (1 mL) injection solution Performing Provider: Delma Raman PA-C Performing Location: [facility] Administered by: Delma Raamn PA-C on 04/05/25 12:15 Dose Route Admin Location Dispensed Lot Number Expiration Date [facility] Supervisor Prop Making 1 mg IM 2 mL [id number] 05/16/25 98433-089-11 FOSUN PHA A Total Dispensed Waste 2 mL 0 % Assessment & Plan Assessment & Plan (1) Neck pain: Code(s): M54.2 - Cervicalgia Plan Most likely strain vs torticollis vs arthritis Torodal given IM in the office today Plan - Rest, heat or ice to the area. - Activities as tolerated. - Prescribe a muscle relaxant to relieve neck muscle tension. - Provide a pain relief injection for immediate pain management. - Prescribe oral pain medication for continued pain control. Orders: Orders AMB Ketorolac Injection Today M53.3 - Sacrococcygeal disorders, not elsewhere classified Coding Level of Care Code Est Pt Level 4 (19896) Diagnoses Neck pain M54.2
--- OUTSIDE RECORDS SUMMARY | 2025-04-05 11:34 | XMS_ITS | Data Portability ---
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 Plan of Treatment Reminders Order Date Submit Date Provider Last Modified By Organization Details Last Modified Time Details Appointments None recorded. Lab urinalysis , dipstick 2022 023 [email or web address] _[facility], [address] [place] [address], [phone], 19:17:14 Referral None recorded. Procedures None recorded. Surgeries None recorded. Imaging None recorded. Medication Orders Augmentin 875 mg-125 mg tablet 2022 023 [id number], [address] [place], [address], 3 19:17:16 Patient TargetsNo targets recorded. Patient Instructions Encounter Date Encounter Id Patient Instructions Last Modified By Organization Details Last Modified Time 10/28/2022 [id number] diverticulitis: care instructions [email or web address] Not available 10/28/2022 19:17:14 learning about diverticulosis and diverticulitis [email or web address] Not available 10/28/2022 19:17:14 Reason for Referral None Reported. Results Created Date Observation Date Name Description Value Unit Range Abnormal Flag Note LastModifiedBy Organization Detail LastModifiedTime 10/28/19 23 10/28/2022 urina lysis , dipst ick Unknown Analyte Normal = light yellow Not Available [facility], [place], [address], 10/28/2022 18:44:50 10/28/1910/28/2022 urina lysis , dipst ick Unknown Analyte Normal = clear Not Available [facility], [place], [address], 10/28/2022 18:44:50 10/28/19 23 10/28/2022 urina lysis , dipst ick Unknown Analyte Normal = negati ve Not Available [facility], [place], [address], 10/28/2022 18:44:50 10/28/19 23 10/28/2022 urina lysis , dipst ick Unknown Analyte Normal = Negati ve Not Available [facility], [place], [address], 10/28/2022 18:44:50 10/28/19 23 10/28/2022 urina lysis , dipst ick Unknown Analyte Normal = Negati ve Not Available [facility], [place], [address], 10/28/2022 18:44:50 10/28/19 23 10/28/2022 urina lysis , dipst ick Unknown Analyte Normal = 1.010, 1.015, 1.020 Not Available [facility], [place], [address], 10/28/2022 18:44:50 10/28/1910/28/2022 urina lysis , dipst ick Unknown Analyte Normal = Negati ve Not Available [facility] [address] [place] [address], [place], [address], 10/28/2022 18:44:50 0110/28/2022 urina lysis , dipst ick Unknown Analyte Normal = 6.5, 7.0, 7.5, 8.0 Not Available [address] [address], [place], [address], 10/28/2022 18:44:50 10/28/19 23 10/28/2022 urina lysis , dipst ick Unknown Analyte Normal = Negati ve Not Available [address] [address], [place], [address], 10/28/2022 18:44:50 10/28/19 23 10/28/2022 urina lysis , dipst ick Unknown Analyte Normal = 0.2, 1.0 Not Available [address] [facility] [address], [place], [place], [address], 10/28/2022 18:44:50 10/28/19 23 10/28/2022 urina lysis , dipst ick Unknown Analyte Normal = Negati ve Not Available l[facility] arm[facility] [address], [place], [place], [address], 10/28/2022 18:44:50 10/28/19 23 10/28/2022 urina lysis , dipst ick Unknown Analyte Normal = Negati ve Not Available [facility] [address], [place], [place], [address], 10/28/2022 18:44:50 10/28/19 23 10/28/2022 urina lysis , dipst ick Unknown Analyte Stefanie Not Available [address] [place] [address], [place], [address], 10/28/2022 18:44:50 10/28/19 23 10/28/2022 urina lysis , dipst ick Unknown Analyte Clear Not Available [address] [place] [address], [place], [address], 10/28/2022 18:44:50 10/28/19 23 10/28/2022 urina lysis , dipst ick Unknown Analyte Negati ve Not Available [facility] [address], [place], [address], 10/28/2022 18:44:50 10/28/19 23 10/28/2022 urina lysis , dipst ick Unknown Analyte Small Not Available alie [address], [place], [address], 10/28/2022 18:44:50 10/28/19 23 10/28/2022 urina lysis , dipst ick Unknown Analyte Negati ve Not Available [facility] [address], [place], [address], 10/28/2022 18:44:50 10/28/19 23 10/28/2022 urina lysis , dipst ick Unknown Analyte 1.030 Not Available alie [address], [place], [address], 10/28/2022 18:44:50 10/28/19 23 10/28/2022 urina lysis , dipst ick Unknown Analyte Trace- intact Not Available [facility] [address], [place], [address], 10/28/2022 18:44:50 10/28/19 23 10/28/2022 urina lysis , dipst ick Unknown Analyte 5.5 Not Available alie [address], [place], [place], [address], 10/28/2022 18:44:50 10/28/19 23 10/28/2022 urina lysis , dipst ick Unknown Analyte Negati ve Not Available [facility] [address] [place], [address], 10/28/2022 18:44:50 10/28/1910/28/2022 urina lysis , dipst ick Unknown Analyte 0.2 E.U./d L Not Available [address] [address], [place], [address], 10/28/2022 18:44:50 10/28/1910/28/2022 urina lysis , dipst ick Unknown Analyte Negati ve Not Available [address] [address], [place], [address], 10/28/2022 18:44:50 10/28/1910/28/2022 urina lysis , dipst ick Unknown Analyte Negati ve Not Available [address] [address] [place], [address], 10/28/2022 18:44:50 Result Notes None recorded. Problems Name Problem SNOMED Code Status Onset Date Resolution Date Notes Provider Name and Address Organization Details Recorded Time Hypertensiv e disorder 04397624 Active 2022 REGINA oscar PA - [facility] 3 18:40:33 Diverticuli tis 098804358 Completed 202210/28/2022 [facility] [...] and Address Organization Details Last Updated DateTime 3 165.1 cm 40.8 kg/m2 805219. 13 g 97 % 97 % 92 /min 16 /min 98.8 [degF] 129 mm[Hg] 91 mm[Hg] REGINA SIERRAAU [facility] 18:43:41 Social History Question Answer Notes LastModified by [employer] Details LastModified Time Tobacco Smoking Status Never Smoker REGINA ZAVALA [place], [address] 10/28/2022 18:41:07 Have You Recently Traveled Abroad? No Information not available 10/28/2022 Sex: Unknown Functional Status Question Answer Note LastModified by [employer] Details LastModified Time Do you use any illicit or recreational drugs? No Information not available 10/28/2022 Do you or have you ever used any other forms of tobacco or nicotine? No Information not available 10/28/2022 What is your level of alcohol consumption? None Information not available 10/28/2022 Are you currently employed? Yes Information not available 10/28/2022 Mental Status None recorded. Family History Relationship [...] SNOMED-CT Code Diagnosis ICD10 Code Diagnosis Note [id number] [facility] [facility] [place] [address] 01/25/2022 08:16:24 01/25/2022 09:13:00 [id number] [facility] [address] [place] [address] 10/28/2022 18:33:30 10/28/2022 19:19:46 Left lower quadrant pain 322340178 R10.32 Please avoid solid foods for the [...] Recorded Advance Directives Directive None Recorded Payers Insurance Date Sequence Insurance Name Policy Number Policy Hernandez Covered Member ID Hernandez Member ID Guarantor Name 10/28/2022 1 NOAH [id number] Agata Parks [id number] Agata Burciagaenez Notes Date Note Type Note Provider Name [...] JW LOWRY [address] [place], [address], [place] - [facility] 10/28/2022 19:18:20 OBGyn Episode No OBEpisode recorded.
== END 2025-04-05 12:34 | disposition home or self-care (01) ==
PROVIDERS: PCP Internal Medicine; Visit Provider Physician Assistant Medical
DX: M54.2 Cervicalgia (principal); M53.3 Sacrococcygeal disorders, not elsewhere classified

== ENCOUNTER → 2025-04-05 11:12 | Outpatient (BNVA) | payer OTHER, SELFPAY | PROVIDERS: PCP Internal Medicine; Visit Provider Physician Assistant Medical | DX: M54.2 Cervicalgia (principal); M53.3 Sacrococcygeal disorders, not elsewhere classified | CPT/HCPCS: 96372; J1885 ==